=== PATIENT | male | born 1940 | race Caucasian/White ===

== ENCOUNTER 2019-02-01 19:05 | Inpatient (IN) | payer MEDICARE, OTHER ==
[2019-02-01] VITALS (9 sets, daily range): BP systolic 83–118; BP diastolic 55–65
[~2019-02-01] VITALS: Ht 172.7 cm; Wt 61.9 kg
[~2019-02-01 19:05] MED LIST: ETOMIDATE 20 MG/10 ML VIAL IV ONE; SUCCINYLCHOLINE CHLORIDE 200 MG/10 ML VIAL IV ONE
--- NOTE | 2019-02-01 19:15 | NUR ---
Dr. Ann at bedside for MSE.
--- NOTE | 2019-02-01 19:20 | NUR ---
Respiratory at bedside.
--- NOTE | 2019-02-01 19:24 | NUR ---
20mg of etomidate given via IV on left AC 20G
--- NOTE | 2019-02-01 19:25 | NUR ---
150 mg of succinylcholine given via IV on left AC 20G
--- NOTE | 2019-02-01 19:26 | NUR ---
PT intubated by Dr. Ann.
[2019-02-01] MEDS ORDERED: PROPOFOL 100 ML IV ONE (19:28)
[2019-02-01] MEDS ORDERED: IPRATROPIUM BROMIDE 0.5 MG/2.5 ML NEBU NEB ONE (19:30)
[2019-02-01] MEDS ORDERED: CEFTRIAXONE 1 G in IV DEXTROSE 5% 50 ML IV ONE (19:30)
[2019-02-01] MEDS ORDERED: ALBUTEROL SULFATE 2.5 MG/3 ML NEBU NEB ONE (19:30)
[2019-02-01] MEDS ORDERED: ETOMIDATE 20 MG/10 ML VIAL IV ONE (19:30)
[2019-02-01] MEDS ORDERED: IV NORMAL SALINE 1000 ML BAG IV ONE (19:30)
[2019-02-01] MEDS ORDERED: NOREPINEPHRINE BITARTRATE 8 MG in IV DEXTROSE 5% 500 ML IV ONE (19:30)
[2019-02-01] MEDS ORDERED: SUCCINYLCHOLINE CHLORIDE 200 MG/10 ML VIAL IV ONE (19:30)
[2019-02-01] MEDS ORDERED: PIPERACILLIN SODIUM/TAZOBACTAM 3.375 G in IV DEXTROSE 5% 50 ML IV ONE (19:30)
--- NOTE | 2019-02-01 19:35 | NUR ---
Called into room by ED and pt subsequently intubated by MD ASHLEY with a 7.5 ETT @ approx. 22cm at the lip. Pt placed on Henson on settings (per MD DION Ann) AC 14, VT 500, PEEP+5 and FIO2-100%. Resp neb rx adm'd per ED orders. ABG done approx. 20 min after. Pt is in no resp. distress and appears to be tolerating the ventilator settings well. Henson alarm parameters have been checked and are audible. Pt to be monitored throughout the duration of the shift. Addendum: 02/02/19 at 1846 by GOYO PRO RT Correction- ETT is 7.0 not 7.5
--- NOTE | 2019-02-01 19:37 | NUR ---
Flu swab completed and sent to lab per MD instruction
[2019-02-01] MEDS ORDERED: CEFTRIAXONE 1 G VIAL ONE (19:39)
[2019-02-01] MEDS ORDERED: PROPOFOL 100 ML ONE (19:45)
[2019-02-01] MEDS ORDERED: ATOR40TA PO (19:53)
[2019-02-01] MEDS ORDERED: ASCO500C18 PO (19:53)
[2019-02-01] MEDS ORDERED: CHOL10002 PO (19:53)
[2019-02-01] MEDS ORDERED: ACET325T53 PO (19:53)
[2019-02-01] MEDS ORDERED: CHLO473M5 MM (19:53)
[2019-02-01] MEDS ORDERED: BISA10SU61 RC (19:53)
[2019-02-01] MEDS ORDERED: MELA5TAB PO (19:53)
[2019-02-01] MEDS ORDERED: [UNRECOGNIZED DRUG - CODE] IV (19:53)
[2019-02-01] MEDS ORDERED: FOLIC ACID PO (19:53)
[2019-02-01] MEDS ORDERED: ASPI81TA31 PO (19:53)
[2019-02-01] MEDS ORDERED: CYAN250014 PO (19:53)
[2019-02-01] MEDS ORDERED: CRAN425C6 PO (19:53)
[2019-02-01] MEDS ORDERED: DOCU-141 PO (19:53)
[2019-02-01] MEDS ORDERED: METO25TA6 PO (19:53)
[2019-02-01] MEDS ORDERED: MULT-213 PO (19:53)
[2019-02-01] MEDS ORDERED: FERR325T24 PO (19:53)
[2019-02-01] MEDS ORDERED: ALBU2.5V38 IH (19:53)
[2019-02-01] MEDS ORDERED: PANT40SU2 PO (19:53)
[2019-02-01] MEDS ORDERED: CRAN3875 PO (19:53)
[2019-02-01] MEDS ORDERED: NA P133E RC (19:53)
[2019-02-01] MEDS ORDERED: IPRA3AMP23 IH (19:53)
[2019-02-01] MEDS ORDERED: ACET-73 PO (19:53)
[2019-02-01] MEDS ORDERED: ALBUTEROL SULFATE 2.5 MG/ 0.5 ML NEBU ONE (19:57)
[2019-02-01] MEDS ORDERED: IPRATROPIUM BROMIDE 0.5 MG/2.5 ML NEBU ONE (19:57)
--- NOTE | 2019-02-01 20:00 | NUR ---
Xray at bedside.
[2019-02-01 20:03] LABS: CARBON DIOXIDE 20 mmol/L (21-32); CREATININE 2.1 mg/dL (0.6-1.3); GLUCOSE 98 mg/dL (74-106); UREA NITROGEN, BLOOD 46 mg/dL (7-18)
[2019-02-01] MEDS ORDERED: PIPERACILLIN/TAZOBACTAM/D5W 50 ML IV ONE (20:04)
[2019-02-01 20:12] LABS: BASOPHILS % (AUTO) 0.3 % (0.0-2.0); EOSINOPHILS # (AUTO) 0.1 K/uL (0.0-0.7); EOSINOPHILS % (AUTO) 0.4 % (0.0-7.0); HEMATOCRIT 44.5 % (36.7-47.1); HEMOGLOBIN 13.6 g/dL (12.5-16.3); LYMPHOCYTES # (AUTO) 0.7 K/uL (20.0-40.0); LYMPHOCYTES % (AUTO) 4.3 % (20.5-51.5); MEAN CORPUSCULAR HGB CONC 30 g/dL (32.5-36.3); MEAN CORPUSCULAR VOLUME 98.5 fL (73.0-96.2); MONOCYTES % (AUTO) 6.1 % (0.0-11.0); NEUTROPHILS # (AUTO) 14.4 K/uL (1.8-8.9); NEUTROPHILS % (AUTO) 88.9 % (38.5-71.5); PLATELET COUNT (AUTO) 220 K/uL (152-348); RED BLOOD CELL COUNT(AUTO) 4.52 MIL/uL (4.06-5.63); WHITE BLOOD COUNT (AUTO) 16.2 K/uL (3.6-10.2)
[2019-02-01 20:13] LABS: CHLORIDE 128 mmol/L (98-107)
[2019-02-01 20:16] LABS: ALANINE AMINOTRANSFERASE 26 U/L (16-63); ALKALINE PHOSPHATASE 84 U/L (50-136); ASPARTATE AMINOTRANSFERASE 45 U/L (15-37); BILIRUBIN,DIRECT 0.5 mg/dL (0.0-0.2); BILIRUBIN,TOTAL 1.9 mg/dL (0.2-1.0); TOTAL PROTEIN, SERUM 8.9 g/dL (6.4-8.2)
--- NOTE | 2019-02-01 20:18 | NUR ---
Urine sample collected, sent to lab.
[2019-02-01 20:21] LABS: ABG BASE EXCESS -8.1 mmol/L; ABG HCO3 17.7 mmol/L; ABG PCO2 37.3 mmHg (35.0-45.0); ABG PH 7.294 (7.350-7.450); ABG PO2 255.6 mmHg (75.0-100.0); ABG SITE LEFT BRACHIAL; ABG TOTAL HEMOGLOBIN 12.8 G/dL (13.5-18.0); COHb 1.4 % (0.5-1.5); MetHb 0.2 % (0.0-1.5); O2Hb 98.3 % (94.0-97.0); VENT MODE VENT - A/C; VT, ABG 500 mL
[2019-02-01] MEDS ORDERED: ENOXAPARIN SODIUM 60 MG/0.6 ML DISP.SYRIN SQ ONE ×2 (20:30→20:31)
--- NOTE | 2019-02-01 20:31 | NUR ---
Dr. Ann speaking with Pedro Camarena.
[2019-02-01 20:32] LABS: *BILIRUBIN,URIN 1+ (NEGATIVE); *KETONES,URINE TRACE (NEGATIVE); *UROBILINOGEN,URINE 0.2 E.U./dl (NORMAL); LEUKOCYTE ESTERASE ,URINE NEGATIVE (NEGATIVE); NITRITE, URINE NEGATIVE (NEGATIVE); PH,URINE 5.5 (5.0-8.0); UGLUCOSE NEGATIVE (NEGATIVE)
--- NOTE | 2019-02-01 20:35 | NUR ---
Pt's son at bedside, refused lovenox, states pt cannot have lovenox due to risk for GI bleed. Addendum: 02/01/19 at [address] Ann made aware.
--- NOTE | 2019-02-01 20:38 | NUR ---
Crescencio Brown IN STORE MARKETER at bedside.
--- NOTE | 2019-02-01 20:40 | NUR ---
Pt accepted for admission to CCU by Crescencio Brown, diagnosis: respiratory failure.
[2019-02-01 20:47] LABS: *BLOOD, URINE TRACE (NEGATIVE)
[2019-02-01 20:48] LABS: *CLARITY,URINE SLIGHTLY HAZY (CLEAR); *COLOR,URINE DARK YELLOW (YELLOW)
[2019-02-01 20:49] LABS: MUCUS,URINE MODERATE /LPF (0-FEW); SQUAMOUS EPITHELIAL CELL,UR FEW /HPF (NONE SEEN); URINE AMORPHOUS URATE MODERATE /HPF; WBC,URINE 0-3 /HPF (0-3)
[2019-02-01 20:54] LABS: BAND % (MANUAL) 28 % (0-10); LYMPHOCYTES % (MANUAL) 7 % (20-40); MONOCYTES % (MANUAL) 6 % (2-10); NEUTROPHILS % (MANUAL) 59 % (42-75)
[2019-02-01] MEDS ORDERED: Z GUARD REMEDY PASTE 57 GM TUBE TOP PRN (21:15)
[2019-02-01] MEDS ORDERED: MORPHINE SULFATE 2 MG/1 ML DISP.SYRIN IV PRN (21:15)
[2019-02-01] MEDS ORDERED: ASPIRIN 300 MG RECTAL SUPP RC ONE (21:15)
--- NOTE | 2019-02-01 21:19 | NUR ---
Report given to Lo DOZIER CCU.
[2019-02-01] MEDS ORDERED: ACETAMINOPHEN 650 MG SUPP.RECT RC PRN (21:30)
[2019-02-01] MEDS: MEROPENEM 500 MG in IV NORMAL SALINE 50 ML IV SCH (21:30)
[2019-02-01] MEDS ORDERED: VANCOMYCIN IV 1 G in PREMIXED 0 EACH IV SCH (22:00)
--- NOTE | 2019-02-01 22:00 | NUR ---
bath patient and changed soiled linens and gown . photo taken on patient skin issues see photo and assessment . patient with generalized redness and skin rashes ,consulted wound care ordered z guard and special mattress .
--- NOTE | 2019-02-01 22:00 | NUR ---
received patient from ER s/p intubation for respiratory failure dx:sepsis and septic shock and acute hypoxia.intubated on ac of 14/500 100% and peep of 5. tolerating vent setting saturation 95 % sedated on propofol patient also on norepinephrine drip t keep sbp >90 mm/hg . admission history data collected from patient son .ISADORA Brown aware about patient and orders in the computer ,isadora Brown spoked with patients son about treatment and patient condition and isadora vu (id ) will see patient for antibiotic treatment .
[2019-02-01] MEDS: PROPOFOL 100 ML IV PRN (23:00)
--- NOTE | 2019-02-01 23:00 | NUR ---
patient son wants no CPR but OK for intubation and medications .
--- NOTE | 2019-02-01 23:03 | NUR ---
U/S OF THE RIGHT AND LEFT EXTREMITIES DONE BY PARLIAMENTARY ARCHIVIST AT BEDSIDE PER PARLIAMENTARY ARCHIVIST + FOR RIGHT LOWER EXTREMITIES DVT .INFORMED STAMPING DIE TRY OUT WORKER SANDY AND MADE AWARE , STAMPING DIE TRY OUT WORKER SPOKED TO PATIENT SON VIA PHONE .NO ORDERS MADE PATIENT SON REFUSED ANTICOAGULANTS .
[2019-02-01] MEDS ORDERED: VANCOMYCIN 1000 MG VIAL ONE (23:13)
[2019-02-01] MEDS ORDERED: MEROPENEM 500MG/NS 50ML PB ***ER PYXIS ONLY IV ONE (23:13)
--- NOTE | 2019-02-01 23:30 | NUR ---
informed patient son that patient needs a midline or a piccline he verbalized understanding and ok for midline or piccline . called nursing wire rope fabrication supervisor and made aware piccline RN COMING IN AM .
--- NOTE | 2019-02-01 23:30 | NUR ---
nell Brown made aware about low urinary output with order for urine Na and urine random .
[2019-02-02] VITALS (93 sets, daily range): BP systolic 65–128; BP diastolic 37–89
--- NOTE | 2019-02-02 | NUR ---
informed SORT MANAGER Kevin patient is a Jehovah witness and refused blood transfusion .placed note in patients chart .
[2019-02-02] MEDS ORDERED: Z GUARD REMEDY PASTE 57 GM TUBE TOP PRN (02:30)
[2019-02-02] MEDS ORDERED: NOREPINEPHRINE BITARTRATE 4 MG/4 ML VIAL IV ONE (04:20)
[2019-02-02] MEDS: NOREPINEPHRINE BITARTRATE 16 MG in IV DEXTROSE 5% 500 ML IV PRN ×2 (04:23→16:09)
[2019-02-02 05:14] LABS: BASOPHILS # (AUTO) 0.1 K/uL (0.0-8.0); BASOPHILS % (AUTO) 0.4 % (0.0-2.0); EOSINOPHILS # (AUTO) 0.1 K/uL (0.0-0.7); EOSINOPHILS % (AUTO) 0.5 % (0.0-7.0); HEMATOCRIT 37.1 % (36.7-47.1); HEMOGLOBIN 11.4 g/dL (12.5-16.3); LYMPHOCYTES # (AUTO) 0.9 K/uL (20.0-40.0); LYMPHOCYTES % (AUTO) 6.2 % (20.5-51.5); MEAN CORPUSCULAR HEMOGLOBIN 30.2 uug (23.8-33.4); MEAN CORPUSCULAR HGB CONC 31 g/dL (32.5-36.3); MEAN CORPUSCULAR VOLUME 97.9 fL (73.0-96.2); MONOCYTES # (AUTO) 0.8 K/uL (2.0-10.0); MONOCYTES % (AUTO) 5.1 % (0.0-11.0); NEUTROPHILS # (AUTO) 13.4 K/uL (1.8-8.9); NEUTROPHILS % (AUTO) 87.8 % (38.5-71.5); PLATELET COUNT (AUTO) 137 K/uL (152-348); RED BLOOD CELL COUNT(AUTO) 3.79 MIL/uL (4.06-5.63); WHITE BLOOD COUNT (AUTO) 15.3 K/uL (3.6-10.2)
[2019-02-02 05:33] LABS: CARBON DIOXIDE 21 mmol/L (21-32); CHOLESTEROL 102 mg/dL (<200); CREATININE 2.1 mg/dL (0.6-1.3); GLUCOSE 157 mg/dL (74-106); HDL CHOLESTEROL 20 mg/dL (40-60); MAGNESIUM 2.2 mg/dL (1.8-2.4); PHOSPHOROUS 3.3 mg/dL (2.5-4.9); POTASSIUM 3.9 mmol/L (3.5-5.1); TRIGLYCERIDES 125 MG/DL (30-150); UREA NITROGEN, BLOOD 49 mg/dL (7-18)
[2019-02-02 05:35] LABS: CHLORIDE 129 mmol/L (98-107)
[2019-02-02] MEDS ORDERED: IV D5W 1000ML 1,000 ML IV PRN (07:30)
--- NOTE | 2019-02-02 07:39 | NUR ---
Attending Tricia Prather in the unit to see and examine patient, see order hx.
--- NOTE | 2019-02-02 08:00 | NUR ---
Vascular services, Dr. Arredondo in the unit to see and examine patient, full report given and at this time himself called pt's son Mr. Gabo Orantes and discussed DVT potential treatment with him. later as stated by physician, pt. unstable for any invasive procedures at this time.
[2019-02-02] MEDS: ASPIRIN 325 MG TABLET GT SCH (08:38)
[2019-02-02] MEDS: Z GUARD REMEDY PASTE 57 GM TUBE TOP SCH ×2 (08:38→20:32)
[2019-02-02] MEDS: PANTOPRAZOLE SODIUM 40 MG VIAL IV SCH (08:38)
[2019-02-02] MEDS: MEROPENEM 500 MG in IV NORMAL SALINE 50 ML IV SCH ×2 (08:49→20:33)
--- NOTE | 2019-02-02 09:00 | NUR ---
Echo Cardiogram in progress.
--- NOTE | 2019-02-02 09:31 | NUR ---
Cardiology services, DR. Bender in the unit to see and examine pt. see order hx.
--- NOTE | 2019-02-02 09:40 | NUR ---
Respiratory serviced, Dr. Dickinson in the unit to see and examine patient, full report given orders received and implemented. See order hx. Rt at bedside.
[2019-02-02] MEDS ORDERED: FUROSEMIDE 40 MG/4 ML VIAL IV ONE (09:45)
[2019-02-02 09:53] LABS: ABG BASE EXCESS -9.3 mmol/L; ABG HCO3 16.7 mmol/L; ABG PCO2 36.5 mmHg (35.0-45.0); ABG PH 7.277 (7.350-7.450); ABG PO2 300.5 mmHg (75.0-100.0); ABG SITE RIGHT RADIAL; ABG TOTAL HEMOGLOBIN 11.6 G/dL (13.5-18.0); COHb 0.8 % (0.5-1.5); MetHb 0.4 % (0.0-1.5); O2Hb 98.4 % (94.0-97.0); VENT MODE VENT - A/C; VT, ABG 500 mL
--- NOTE | 2019-02-02 09:55 | NUR ---
RT Post ABG decreased FiO2 to 50% and increased VT to 550 per verbal order. RN aware
--- NOTE | 2019-02-02 10:04 | NUR ---
Nephrology services, Dr. Radha Farr in the unit to see and examine patient. See orders hx.
[2019-02-02] MEDS: PROPOFOL 100 ML IV PRN ×2 (10:55→20:33)
[2019-02-02] MEDS: IV 1/2NS 1000 ML 1,000 ML IV PRN (10:57)
--- NOTE | 2019-02-02 14:17 | NUR ---
Clinical pharmacy note-Vancomycin dosing per pharmacy Subjective: To start Vancomycin dosing on this patient for HCAP and septic shock Objective: BUN 49 Scr 2.1 WBC 15.3 Temp 99.2 Assessment/Plan: Patient had Vancomycin 1gram last night at 2200. Will start Vancomycin dosing by random level due to decreased renal function. Vancomycin random is on order today at 1500. Will follow the level for further dosing. Addendum: 02/02/19 at 1606 by CODY ESCOBAR VANCOMYCIN RANDOM TODAY AT 1500:22.3 NO DOSE WILL BE GIVEN TODAY AND ANOTHER RANDOM IS ON ORDER FOR TOMORROW AM FOR FURTHER DOSING
[2019-02-02 18:27] LABS: BASOPHILS # (AUTO) 0.1 K/uL (0.0-8.0); BASOPHILS % (AUTO) 0.6 % (0.0-2.0); EOSINOPHILS # (AUTO) 1.6 K/uL (0.0-0.7); EOSINOPHILS % (AUTO) 11.5 % (0.0-7.0); HEMATOCRIT 35.9 % (36.7-47.1); HEMOGLOBIN 11.1 g/dL (12.5-16.3); LYMPHOCYTES # (AUTO) 1.1 K/uL (20.0-40.0); LYMPHOCYTES % (AUTO) 7.8 % (20.5-51.5); MEAN CORPUSCULAR HGB CONC 31 g/dL (32.5-36.3); MEAN CORPUSCULAR VOLUME 97.4 fL (73.0-96.2); MONOCYTES # (AUTO) 0.8 K/uL (2.0-10.0); MONOCYTES % (AUTO) 5.6 % (0.0-11.0); NEUTROPHILS # (AUTO) 10.6 K/uL (1.8-8.9); NEUTROPHILS % (AUTO) 74.5 % (38.5-71.5); PLATELET COUNT (AUTO) 136 K/uL (152-348); RED BLOOD CELL COUNT(AUTO) 3.69 MIL/uL (4.06-5.63); WHITE BLOOD COUNT (AUTO) 14.2 K/uL (3.6-10.2)
--- NOTE | 2019-02-02 18:40 | NUR ---
BUBBA Bell in the unit to see and examine patient.
--- NOTE | 2019-02-02 19:30 | NUR ---
Report received. 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 Orally intubated and to mechanical ventilator with settings: AC=14, AH=970hf, FIO2=40%, PEEP=5; saturations 98-100%. Doesn't open eyes to name or painful stimuli. With facial grimacing to pain. Good cough effort noted during suctioning. On Levophed and Diprivan drips to MATTHEW PICC line; refer to IV spread sheet for dosages/rates. Assessment completed. Addendum: 02/02/19 at 2114 by MINH SHORE RN Amended: Links added.
[2019-02-02] MEDS: MUPIROCIN 2% OINT 22 GM TUBE NS SCH (20:31)
--- NOTE | 2019-02-02 20:45 | NUR ---
Sedation vacation: After 15 minutes, patient's RR up to 20/min, bucking the vent, still doesn't open eyes to name, but grimaces to pain. Diprivan drip resumed at 30 mcg/kg/min. Addendum: 02/02/19 at 210 by MINH SHORE RN Amended: Links added. Addendum: 02/02/19 at 2114 by MINH SHORE RN Amended: Links added.
[2019-02-03] VITALS (69 sets, daily range): BP systolic 83–109; BP diastolic 45–69
[2019-02-03] MEDS: IV 1/2NS 1000 ML 1,000 ML IV PRN (00:55)
[2019-02-03] MEDS: NOREPINEPHRINE BITARTRATE 16 MG in IV DEXTROSE 5% 500 ML IV PRN ×3 (00:55→21:17)
[2019-02-03] MEDS: PROPOFOL 100 ML IV PRN ×3 (04:01→21:13)
--- NOTE | 2019-02-03 04:30 | NUR ---
Levophed drip titrated down to 25 mcg/min. BPs monitored closely. Addendum: 02/03/19 at 0647 by MINH SHORE RN Amended: Links added.
[2019-02-03 05:18] LABS: BASOPHILS # (AUTO) 0.1 K/uL (0.0-8.0); BASOPHILS % (AUTO) 0.3 % (0.0-2.0); EOSINOPHILS # (AUTO) 2.3 K/uL (0.0-0.7); EOSINOPHILS % (AUTO) 15.4 % (0.0-7.0); HEMATOCRIT 36.3 % (36.7-47.1); HEMOGLOBIN 11.1 g/dL (12.5-16.3); LYMPHOCYTES # (AUTO) 1.1 K/uL (20.0-40.0); LYMPHOCYTES % (AUTO) 6.9 % (20.5-51.5); MEAN CORPUSCULAR HEMOGLOBIN 29.8 uug (23.8-33.4); MEAN CORPUSCULAR HGB CONC 31 g/dL (32.5-36.3); MEAN CORPUSCULAR VOLUME 97.1 fL (73.0-96.2); MONOCYTES # (AUTO) 0.7 K/uL (2.0-10.0); MONOCYTES % (AUTO) 4.8 % (0.0-11.0); NEUTROPHILS # (AUTO) 11.1 K/uL (1.8-8.9); NEUTROPHILS % (AUTO) 72.6 % (38.5-71.5); PLATELET COUNT (AUTO) 127 K/uL (152-348); RED BLOOD CELL COUNT(AUTO) 3.74 MIL/uL (4.06-5.63); WHITE BLOOD COUNT (AUTO) 15.3 K/uL (3.6-10.2)
[2019-02-03 05:23] LABS: CARBON DIOXIDE 21 mmol/L (21-32); CHLORIDE 121 mmol/L (98-107); GLUCOSE 159 mg/dL (74-106); POTASSIUM 3.1 mmol/L (3.5-5.1); UREA NITROGEN, BLOOD 48 mg/dL (7-18)
--- NOTE | 2019-02-03 06:46 | NUR ---
Saturations maintaining above 94% on current vent settings. Levophed drip remains at 25 mcg/min and Diprivan drip at 35 mcg/kg/min. No neuro changes. Addendum: 02/03/19 at 0646 by MINH SHORE RN Amended: Links added. Addendum: 02/03/19 at 0647 by MINH SHORE RN Amended: Links added.
[2019-02-03] MEDS: ASPIRIN 325 MG TABLET GT SCH (09:00)
[2019-02-03] MEDS: MEROPENEM 500 MG in IV NORMAL SALINE 50 ML IV SCH (09:00)
[2019-02-03] MEDS: MUPIROCIN 2% OINT 22 GM TUBE NS SCH ×2 (09:00→20:29)
[2019-02-03] MEDS: Z GUARD REMEDY PASTE 57 GM TUBE TOP SCH ×2 (09:00→20:30)
[2019-02-03 09:06] LABS: ABG BASE EXCESS -6.1 mmol/L; ABG HCO3 19.6 mmol/L; ABG PCO2 39.4 mmHg (35.0-45.0); ABG PH 7.314 (7.350-7.450); ABG PO2 97.7 mmHg (75.0-100.0); ABG SITE RIGHT RADIAL; ABG TOTAL HEMOGLOBIN 12.1 G/dL (13.5-18.0); COHb 1.5 % (0.5-1.5); MetHb 0.1 % (0.0-1.5); O2Hb 96.1 % (94.0-97.0); VENT MODE VENT - A/C 14; VT, ABG 550 mL
[2019-02-03] MEDS: PANTOPRAZOLE SODIUM 40 MG VIAL IV SCH (12:04)
[2019-02-03] MEDS: ONDANSETRON 4 MG/2 ML VIAL IV PRN (12:04)
[2019-02-03] MEDS: POTASSIUM CHLORIDE 50 ML IV SCH ×3 (12:07→13:45)
--- NOTE | 2019-02-03 14:32 | NUR ---
Clinical pharmacy note-Vancomycin dosing per pharmacy Subjective: To continue Vancomycin dosing on this patient for HCAP and septic shock Objective: BUN 48 Scr 2.0 WBC 15.3 Temp 97.9 Random today with am labs: 19.1 Assessment/Plan: Will continue dosing per level d/t reduced renal function. Per today's random, will dose a 1gm vanco tonight at 2100. Will check renal function in am and decide when to order next random level. Will follow
--- NOTE | 2019-02-03 16:39 | NUR ---
i CALLED AND NOTIFIED, Kary HASSAN. THAT PT. HAS A SPUTUM CULTURE FROM 01/31/2019 THAT WAS POSITIVE FOR C.R.E. SHE STATED, " I WILL TAKE CARE OF IT WHEN I COME LATER TODAY. "SON HERE VISITING WITH PT. AND ALSO AWARE OF THE CULTURE RESULTS.
--- NOTE | 2019-02-03 19:45 | NUR ---
Pt received on continuous mechanical ventilation via 7.0 ETT secured at 22cm lipl line. Pt on Henson vent with ordered settings of A/C-14, VT-550, PEEP+5, FIO2-30%. Pt tolerating vent settings well. Sxn'd small amounts of thick white/yellow secretions. No signs or symptoms of respiratory distress noted. ETT secured with AnchorFast device, good skin integrity noted to area of application. ETT moved periodically per hospital policy. HME changed. Oral care done. Proper isolation precuation equipment used. Bag/valve/mask at bedside. Vent alarm parameters checked, on and audible. Vent plugged into red emergency outlet. Will continue to monitor.
--- NOTE | 2019-02-03 19:50 | NUR ---
Report received. Seen by Adrienne MUIR; updated of patient's conditione. Remains on Levophed and Diprivan drips via PICC line MATTHEW. VS monitored closely. 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 New antibiotics ordered by Adrienne MUIR. Addendum: 02/03/19 at 2314 by MINH SHORE RN Amended: Links added.
[2019-02-03] MEDS ORDERED: DOSING PER PHARMACY-AMIKACIN IV XX PRN (20:00)
[2019-02-03] MEDS ORDERED: CLINDAMYCIN PHOSPHATE 600 MG/4 ML VIAL ONE ×2 (20:44→22:34)
[2019-02-03] MEDS ORDERED: VANCOMYCIN IV 1,000 MG in IV DEXTROSE 5% 250 ML IV ONE (21:00)
[2019-02-03] MEDS ORDERED: NORMAL SALINE IV SCH (21:45)
[2019-02-03] MEDS ORDERED: AMIKACIN IV SCH (21:45)
--- NOTE | 2019-02-03 22:20 | NUR ---
Sedation vacation: After 40 minutes patient's RR up to 20/min, moving R arm weakly, trying to scratch R side, still not opening eyes to name. Diprivan drip resumed at 30 mcg/kg/min. Addendum: 02/03/19 at 2308 by MINH SHORE RN Amended: Links added.
[2019-02-03] MEDS: CLINDAMYCIN PHOSPHATE IV 600 MG in IV DEXTROSE 5% 100 ML IV SCH (22:29)
[2019-02-03] MEDS ORDERED: AMIKACIN SULFATE 500 MG/2 ML VIAL ONE (22:33)
[2019-02-04] VITALS (95 sets, daily range): BP systolic 71–108; BP diastolic 39–69
[2019-02-04] MEDS: IV 1/2NS 1000 ML 1,000 ML IV PRN ×2 (03:58→11:01)
[2019-02-04 05:19] LABS: BASOPHILS % (AUTO) 0.1 % (0.0-2.0); EOSINOPHILS # (AUTO) 1.8 K/uL (0.0-0.7); EOSINOPHILS % (AUTO) 12.7 % (0.0-7.0); HEMATOCRIT 36.2 % (36.7-47.1); HEMOGLOBIN 11.4 g/dL (12.5-16.3); LYMPHOCYTES # (AUTO) 1.1 K/uL (20.0-40.0); LYMPHOCYTES % (AUTO) 7.8 % (20.5-51.5); MEAN CORPUSCULAR HEMOGLOBIN 30.2 uug (23.8-33.4); MEAN CORPUSCULAR HGB CONC 32 g/dL (32.5-36.3); MEAN CORPUSCULAR VOLUME 95.8 fL (73.0-96.2); MONOCYTES # (AUTO) 0.7 K/uL (2.0-10.0); MONOCYTES % (AUTO) 4.9 % (0.0-11.0); NEUTROPHILS # (AUTO) 10.8 K/uL (1.8-8.9); NEUTROPHILS % (AUTO) 74.5 % (38.5-71.5); PLATELET COUNT (AUTO) 113 K/uL (152-348); RED BLOOD CELL COUNT(AUTO) 3.78 MIL/uL (4.06-5.63); WHITE BLOOD COUNT (AUTO) 14.5 K/uL (3.6-10.2)
[2019-02-04 05:35] LABS: CARBON DIOXIDE 20 mmol/L (21-32); CHLORIDE 114 mmol/L (98-107); CREATININE 1.6 mg/dL (0.6-1.3); GLUCOSE 149 mg/dL (74-106); PHOSPHOROUS 2.9 mg/dL (2.5-4.9); POTASSIUM 3.7 mmol/L (3.5-5.1); UREA NITROGEN, BLOOD 37 mg/dL (7-18)
[2019-02-04] MEDS: CLINDAMYCIN PHOSPHATE IV 600 MG in IV DEXTROSE 5% 100 ML IV SCH ×3 (05:37→21:32)
[2019-02-04] MEDS: PROPOFOL 100 ML IV PRN ×2 (05:58→18:16)
--- NOTE | 2019-02-04 06:24 | NUR ---
Remains on Levophed and Diprivan drips at 25 mcg/min and 30 mcg/kg/min respectively via MATTHEW PICC line. Saturations on current vent settings above 94%. Contact isolation maintained. Addendum: 02/04/19 at 0624 by MINH SHORE RN Amended: Links added.
[2019-02-04] MEDS: NOREPINEPHRINE BITARTRATE 16 MG in IV DEXTROSE 5% 500 ML IV PRN ×3 (07:31→20:25)
--- NOTE | 2019-02-04 08:00 | NUR ---
Pulmonary services, Dr. Dominguez in the unit to see and examine patient, full report given orders received, see orders hx.
[2019-02-04] MEDS: MUPIROCIN 2% OINT 22 GM TUBE NS SCH ×2 (08:17→20:30)
[2019-02-04] MEDS: PANTOPRAZOLE SODIUM 40 MG VIAL IV SCH (08:17)
[2019-02-04] MEDS: ASPIRIN 325 MG TABLET GT SCH (08:17)
[2019-02-04] MEDS: Z GUARD REMEDY PASTE 57 GM TUBE TOP SCH ×2 (08:19→20:30)
--- NOTE | 2019-02-04 08:45 | NUR ---
Sedation vacation started at this time and lasted until 0900, patient awake, attempting reach ETT with RUE. RR in the 20's. Gag, and cough reflex present. SBP in the 90's.
[2019-02-04 08:54] LABS: ABG BASE EXCESS -8.6 mmol/L; ABG HCO3 15.9 mmol/L; ABG PCO2 30.2 mmHg (35.0-45.0); ABG PO2 146.7 mmHg (75.0-100.0); ABG SITE LEFT BRACHIAL; ABG TOTAL HEMOGLOBIN 12.2 G/dL (13.5-18.0); COHb 1.6 % (0.5-1.5); MetHb 0.1 % (0.0-1.5); O2Hb 97.7 % (94.0-97.0); VENT MODE VENT - A/C; VT, ABG 550 mL
--- NOTE | 2019-02-04 09:05 | NUR ---
Pt received on continuous mechanical ventilation via 7.0 ETT secured at 22cm lip line. Pt on Henson vent with ordered settings of A/C-14, VT-550, PEEP+5, FIO2-30%. Pt tolerating vent settings well. Sxn'd small amounts of thick secretions. No signs or symptoms of respiratory distress noted. ETT secured with AnchorFast device, good skin integrity noted to area of application. ETT moved periodically per hospital policy. HME changed. Oral care done. Proper isolation precuation equipment used. Bag/valve/mask at bedside. Vent alarm parameters checked, on and audible. Vent plugged into red emergency outlet. Will continue to monitor.
--- NOTE | 2019-02-04 10:00 | NUR ---
PUlmonary services, Dr. Dominguez in the unit and at this time informed of ABG results. No new orders received.
--- NOTE | 2019-02-04 10:35 | NUR ---
Cardiology services, Dr. Suárez in the unit to see and examine patient, full report given orders to decrease IVF to 50cc/hr and to titrate down levophed if sbp above 90, or a map of 60.
[2019-02-04] MEDS ORDERED: BISACODYL 10 MG SUPP.RECT RC PRN (12:15)
[2019-02-04] MEDS ORDERED: ALBUTEROL SULFATE 2.5 MG/3 ML NEBU IH PRN (12:15)
--- NOTE | 2019-02-04 13:45 | NUR ---
At this time pt's son and DPOA in the unit to visit his dad and as requested by him Attending Dr. Latrice Irvin called to speak about possible hospice vs comfort care measures as stated by pt'son. Addendum: 02/04/19 at 1403 by TIN DUFFY RN The above note intended for another patient.
--- NOTE | 2019-02-04 14:25 | NUR ---
Clinical pharmacy note-Amikacin dosing per pharmacy Subjective: To continue Amiakcin dosing on this patient for HCAP Objective: BUN 37 Scr 1.6 (decreasing) WBC 14.5 Temp 97.9 Amikacin random level: 14.7 (post amikacin 350 mg IV x1 on 02/03 at 2330) ht 172.7 cm wt 61.8 kg Assessment/Plan: Due to unstable srcr, will dose by random level today. Random level ~ 6 hrs post 1st dose is 14.7 mcg/ml. Will give Amikacin 350 mg IVPB x1 today at 1800. Pharmacy shall review the renal function in am & decide when to order next random for further dosing. Will follow
[2019-02-04] MEDS ORDERED: FERROUS SULFATE 325 MG TABEC PO SCH (17:00)
[2019-02-04] MEDS: CLOTRIMAZOLE 1% CREAM 30 GM TUBE TOP SCH (17:09)
[2019-02-04] MEDS: CHOLECALCIFEROL 1,000 UNIT TABLET GT SCH (17:13)
[2019-02-04] MEDS ORDERED: NORMAL SALINE IV ONE (18:00)
[2019-02-04] MEDS ORDERED: AMIKACIN IV ONE (18:00)
--- NOTE | 2019-02-04 18:00 | NUR ---
Attending N.P. called to be notified of knitter machine recommendations for TF. A call back from attending, N.P. Crescencio orders to start patient on feeding received.
[2019-02-04] MEDS: FERROUS SULFATE 300 MG/5 ML LIQUID UDC GT SCH (18:03)
--- NOTE | 2019-02-04 19:30 | NUR ---
Report received. 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 Orally intubated and to ventilator with same settings. Sat 96-100%. With both Diprivan and Levophed drips via MATTHEW PICC line. Please see IV spread sheet for rates/dosages. Assessment done. Addendum: 02/05/19 at 0700 by MINH SHORE RN Amended: Links added. Addendum: 02/05/19 at 0702 by MINH SHORE RN Amended: Links added.
[2019-02-04] MEDS: CHLORHEXIDINE GLUCONATE 15 ML MOUTHWASH MM SCH (20:30)
[2019-02-04] MEDS: ATORVASTATIN 40 MG TABLET GT SCH (20:30)
--- NOTE | 2019-02-04 21:30 | NUR ---
NGT feedings started at 20 ml/H. Addendum: 02/05/19 at 0702 by MINH SHORE RN Amended: Links added.
[2019-02-04] MEDS: OSMOLITE 1.2 CAL 1,000 ML LIQUID NG PRN (21:33)
[2019-02-05] VITALS (94 sets, daily range): BP systolic 74–114; BP diastolic 36–64
--- NOTE | 2019-02-05 03:00 | NUR ---
Tolerating NGT feedings; rate increased to 30 ml/H. Goal is 60 ml/H.
[2019-02-05 05:08] LABS: BASOPHILS % (AUTO) 0.3 % (0.0-2.0); EOSINOPHILS # (AUTO) 1.4 K/uL (0.0-0.7); EOSINOPHILS % (AUTO) 11.7 % (0.0-7.0); HEMATOCRIT 35.3 % (36.7-47.1); HEMOGLOBIN 11.2 g/dL (12.5-16.3); LYMPHOCYTES # (AUTO) 0.8 K/uL (20.0-40.0); LYMPHOCYTES % (AUTO) 7.2 % (20.5-51.5); MEAN CORPUSCULAR HGB CONC 32 g/dL (32.5-36.3); MEAN CORPUSCULAR VOLUME 94.6 fL (73.0-96.2); MONOCYTES # (AUTO) 0.7 K/uL (2.0-10.0); MONOCYTES % (AUTO) 5.8 % (0.0-11.0); NEUTROPHILS # (AUTO) 8.8 K/uL (1.8-8.9); PLATELET COUNT (AUTO) 123 K/uL (152-348); RED BLOOD CELL COUNT(AUTO) 3.73 MIL/uL (4.06-5.63); WHITE BLOOD COUNT (AUTO) 11.8 K/uL (3.6-10.2)
[2019-02-05 05:13] LABS: CARBON DIOXIDE 20 mmol/L (21-32); CHLORIDE 112 mmol/L (98-107); CREATININE 1.4 mg/dL (0.6-1.3); GLUCOSE 147 mg/dL (74-106); POTASSIUM 3.6 mmol/L (3.5-5.1); UREA NITROGEN, BLOOD 31 mg/dL (7-18)
[2019-02-05] MEDS: CLINDAMYCIN PHOSPHATE IV 600 MG in IV DEXTROSE 5% 100 ML IV SCH ×3 (05:38→21:05)
--- NOTE | 2019-02-05 06:00 | NUR ---
No neuro changes. Reaches for the ETT with R hand when turned and repositioned. Still doesn't open eyes to name or pain. Remains on Diprivan and Levophed drip at 20 mcg/kg/min and 18 mcg/min. respectively.
--- NOTE | 2019-02-05 07:15 | NUR ---
Levophed drip titrated up to 20 mcg/min; BP=76/48. Report given to Dennis DOZIER. Addendum: 02/05/19 at 0731 by MINH SHORE RN Amended: Links added.
[2019-02-05] MEDS: PROPOFOL 100 ML IV PRN ×2 (07:24→22:49)
--- NOTE | 2019-02-05 08:25 | NUR ---
WOUND CARE CONSULT (LATE ENTRY): PT SEEN ON 02/04/19 FOR SKIN ASSESSMENT AND NOTED TO HAVE GENERALIZED SKIN DISCOLORATION ALL OVER BODY, UNKNOWN ETIOLOGY, PRESENT ON ADMISSION. DEFER TO MD FOR SKIN CONDITION. PT ALSO NOTED TO HAVE RASH TO GROIN, PERINEUM, SACRAL/BUTTOCKS AREA, PRESENT ON ADMISSION. RECOMMENDATIONS MADE FOR THIS RASH (LOTRIMIN). DISCUSSED WITH NURSING STAFF. PT ON FIRST STEP [facility] AIRLOSS MATTRESS. ALL SKIN PROTECTION MEASURES IN PLACE. WILL SEE PRN. MD IN AGREEMENT WITH PLAN OF CARE. Addendum: 02/05/19 at 0828 by DENZEL THOMPSON RN Amended: Links added.
[2019-02-05] MEDS ORDERED: MULTIVITAMINS 5 ML LIQUID UDC GT SCH (09:00)
[2019-02-05] MEDS: CLOTRIMAZOLE 1% CREAM 30 GM TUBE TOP SCH ×2 (09:00→17:13)
[2019-02-05] MEDS: Z GUARD REMEDY PASTE 57 GM TUBE TOP SCH ×2 (09:00→21:02)
[2019-02-05] MEDS: PANTOPRAZOLE SODIUM 40 MG VIAL IV SCH (09:00)
[2019-02-05] MEDS: MUPIROCIN 2% OINT 22 GM TUBE NS SCH ×2 (09:00→21:04)
[2019-02-05] MEDS ORDERED: DOCUSATE SODIUM 100 MG CAPSULE PO SCH (09:00)
[2019-02-05] MEDS: CHLORHEXIDINE GLUCONATE 15 ML MOUTHWASH MM SCH ×2 (09:00→21:01)
[2019-02-05 09:32] LABS: ABG BASE EXCESS -7.7 mmol/L; ABG HCO3 17.7 mmol/L; ABG PCO2 35.4 mmHg (35.0-45.0); ABG PH 7.316 (7.350-7.450); ABG SITE RIGHT RADIAL; ABG TOTAL HEMOGLOBIN 11.7 G/dL (13.5-18.0); COHb 1.3 % (0.5-1.5); MetHb 0.2 % (0.0-1.5); O2Hb 95.9 % (94.0-97.0); VENT MODE VENT - A/C; VT, ABG 550 mL
[2019-02-05] MEDS: FERROUS SULFATE 300 MG/5 ML LIQUID UDC GT SCH ×2 (10:46→20:05)
[2019-02-05] MEDS: DOCUSATE SODIUM 100 MG/10 ML LIQUID UDC GT SCH (10:46)
[2019-02-05] MEDS: ONDANSETRON 4 MG/2 ML VIAL IV PRN (10:46)
[2019-02-05] MEDS: ASCORBIC ACID 500 MG TABLET GT SCH (10:47)
[2019-02-05] MEDS: ASPIRIN 325 MG TABLET GT SCH (10:47)
[2019-02-05] MEDS: MULTIVITAMINS,THERAPEUTIC TABLET GT SCH (10:47)
[2019-02-05] MEDS: FOLIC ACID 1 MG TABLET GT SCH (10:47)
[2019-02-05] MEDS: CHOLECALCIFEROL 1,000 UNIT TABLET GT SCH ×2 (10:57→17:14)
[2019-02-05] MEDS: CYANOCOBALAMIN 1,000 MCG TABLET GT SCH (10:57)
[2019-02-05] MEDS: NOREPINEPHRINE BITARTRATE 16 MG in IV DEXTROSE 5% 500 ML IV PRN (11:20)
[2019-02-05] MEDS: IV 1/2NS 1000 ML 1,000 ML IV PRN (11:31)
--- NOTE | 2019-02-05 13:29 | NUR ---
Clinical pharmacy note-Amikacin dosing per pharmacy Subjective: To continue Amiakcin dosing on this patient for HCAP Objective: BUN 31 Scr 1.4 (decreasing) WBC 11.8 Temp 98.2 Amikacin random level: 14.7 (post amikacin 350 mg IV x1 on 02/03 at 2330) Amikacin random level on 02/05 at 0817: 13.5(post amikacin 350mg iv x1 on 02/04 at 1800) ht 172.7 cm wt 61.8 kg Assessment/Plan: Due to unstable srcr, will dose by random level today. Will give Amikacin 350mg iv x1 today (ordered for tonight at 1800) and draw random tomorrow am for further dosing. If renal function is stable, will consider scheduled dosing.
[2019-02-05] MEDS ORDERED: AMIKACIN 350 MG in IV DEXTROSE 5% 100 ML IV ONE (18:00)
--- NOTE | 2019-02-05 20:20 | NUR ---
Short run V-tach; EKG done. Noted episode documented; days prior.
[2019-02-05] MEDS: ATORVASTATIN 40 MG TABLET GT SCH (21:01)
[2019-02-06] VITALS (95 sets, daily range): BP systolic 75–113; BP diastolic 29–65
[2019-02-06 04:56] LABS: BASOPHILS % (AUTO) 0.2 % (0.0-2.0); EOSINOPHILS % (AUTO) 8.7 % (0.0-7.0); HEMATOCRIT 32.9 % (36.7-47.1); HEMOGLOBIN 10.7 g/dL (12.5-16.3); LYMPHOCYTES # (AUTO) 0.8 K/uL (20.0-40.0); LYMPHOCYTES % (AUTO) 7.6 % (20.5-51.5); MEAN CORPUSCULAR HEMOGLOBIN 30.7 uug (23.8-33.4); MEAN CORPUSCULAR HGB CONC 33 g/dL (32.5-36.3); MEAN CORPUSCULAR VOLUME 94.4 fL (73.0-96.2); MONOCYTES # (AUTO) 0.7 K/uL (2.0-10.0); MONOCYTES % (AUTO) 6.1 % (0.0-11.0); NEUTROPHILS # (AUTO) 8.5 K/uL (1.8-8.9); NEUTROPHILS % (AUTO) 77.4 % (38.5-71.5); PLATELET COUNT (AUTO) 135 K/uL (152-348); RED BLOOD CELL COUNT(AUTO) 3.49 MIL/uL (4.06-5.63)
[2019-02-06 05:13] LABS: CREATININE 1.2 mg/dL (0.6-1.3); MAGNESIUM 1.9 mg/dL (1.8-2.4); PHOSPHOROUS 2.9 mg/dL (2.5-4.9); POTASSIUM 3.8 mmol/L (3.5-5.1)
[2019-02-06] MEDS: CLINDAMYCIN PHOSPHATE IV 600 MG in IV DEXTROSE 5% 100 ML IV SCH ×3 (05:45→21:18)
[2019-02-06] MEDS: DOCUSATE SODIUM 100 MG/10 ML LIQUID UDC GT SCH (07:44)
[2019-02-06] MEDS: PANTOPRAZOLE SODIUM 40 MG VIAL IV SCH (07:44)
[2019-02-06] MEDS: ASPIRIN 325 MG TABLET GT SCH (07:45)
[2019-02-06] MEDS: MULTIVITAMINS,THERAPEUTIC TABLET GT SCH (07:45)
[2019-02-06] MEDS: FOLIC ACID 1 MG TABLET GT SCH (07:46)
[2019-02-06] MEDS: FERROUS SULFATE 300 MG/5 ML LIQUID UDC GT SCH ×2 (07:46→20:15)
[2019-02-06] MEDS: ASCORBIC ACID 500 MG TABLET GT SCH (07:46)
[2019-02-06] MEDS: ONDANSETRON 4 MG/2 ML VIAL IV PRN ×2 (07:47→09:28)
[2019-02-06 08:07] LABS: ABG HCO3 15.6 mmol/L; ABG PCO2 30.2 mmHg (35.0-45.0); ABG PH 7.332 (7.350-7.450); ABG SITE RIGHT RADIAL; ABG TOTAL HEMOGLOBIN 11.8 G/dL (13.5-18.0); COHb 1.8 % (0.5-1.5); O2Hb 93.7 % (94.0-97.0); VENT MODE VENT - A/C; VT, ABG 550 mL
[2019-02-06] MEDS: CHOLECALCIFEROL 1,000 UNIT TABLET GT SCH ×2 (09:00→15:55)
--- NOTE | 2019-02-06 09:00 | NUR ---
DR. TOPETE here to examine pt.
[2019-02-06] MEDS: CHLORHEXIDINE GLUCONATE 15 ML MOUTHWASH MM SCH ×2 (09:29→20:42)
[2019-02-06] MEDS: CLOTRIMAZOLE 1% CREAM 30 GM TUBE TOP SCH ×2 (09:29→17:01)
[2019-02-06] MEDS: Z GUARD REMEDY PASTE 57 GM TUBE TOP SCH ×2 (09:29→20:43)
[2019-02-06] MEDS: MUPIROCIN 2% OINT 22 GM TUBE NS SCH ×2 (09:29→20:43)
[2019-02-06] MEDS: CYANOCOBALAMIN 1,000 MCG TABLET GT SCH (09:38)
[2019-02-06] MEDS: NOREPINEPHRINE BITARTRATE 16 MG in IV DEXTROSE 5% 500 ML IV PRN (13:18)
--- NOTE | 2019-02-06 13:35 | NUR ---
Clinical pharmacy note-Amikacin dosing per pharmacy Subjective: To continue Amikacin dosing on this patient for HCAP Objective: BUN 27 Scr 1.2 (decreasing) WBC 11 Temp 98 Amikacin random level: 14.7 (post amikacin 350 mg IV x1 on 02/03 at 2330) Amikacin random level on 02/05 at 0817: 13.5(post amikacin 350mg iv x1 on 02/04 at 1800) Amikacin random level on 02/07 at 06: 11.7 (post amikacin 350mg iv x1 on 02/05 at 1800) ht 172.7 cm wt 61.8 kg Assessment/Plan: Due to unstable srcr, will dose by random level today. Will give Amikacin 350mg iv x1 today (ordered for tonight at 1800) and draw random tomorrow am for further dosing. If renal function is stable, will consider scheduled dosing.
[2019-02-06] MEDS: PROPOFOL 100 ML IV PRN (15:56)
[2019-02-06] MEDS ORDERED: AMIKACIN 350 MG in IV DEXTROSE 5% 100 ML IV ONE (18:00)
--- NOTE | 2019-02-06 18:57 | NUR ---
SONYA here earlier to examine pt.
--- NOTE | 2019-02-06 18:58 | NUR ---
needed to increase propofol drip to 20 / mcg / kg / minute due to tachypnea ,earlier.
[2019-02-06] MEDS: ATORVASTATIN 40 MG TABLET GT SCH (20:42)
[2019-02-06] MEDS: IV NORMAL SALINE 250 ML IV PRN (21:18)
[2019-02-07] VITALS (91 sets, daily range): BP systolic 68–142; BP diastolic 27–103
[2019-02-07] MEDS: NOREPINEPHRINE BITARTRATE 16 MG in IV DEXTROSE 5% 500 ML IV PRN ×2 (01:58→13:19)
[2019-02-07] MEDS: PROPOFOL 100 ML IV PRN ×3 (03:39→23:50)
[2019-02-07 05:18] LABS: BASOPHILS % (AUTO) 0.3 % (0.0-2.0); EOSINOPHILS # (AUTO) 0.5 K/uL (0.0-0.7); EOSINOPHILS % (AUTO) 3.1 % (0.0-7.0); HEMATOCRIT 33.3 % (36.7-47.1); HEMOGLOBIN 10.6 g/dL (12.5-16.3); LYMPHOCYTES # (AUTO) 0.9 K/uL (20.0-40.0); LYMPHOCYTES % (AUTO) 5.4 % (20.5-51.5); MEAN CORPUSCULAR HEMOGLOBIN 30.3 uug (23.8-33.4); MEAN CORPUSCULAR HGB CONC 32 g/dL (32.5-36.3); MEAN CORPUSCULAR VOLUME 94.9 fL (73.0-96.2); MONOCYTES # (AUTO) 0.9 K/uL (2.0-10.0); MONOCYTES % (AUTO) 5.3 % (0.0-11.0); NEUTROPHILS # (AUTO) 13.9 K/uL (1.8-8.9); NEUTROPHILS % (AUTO) 85.9 % (38.5-71.5); PLATELET COUNT (AUTO) 168 K/uL (152-348); RED BLOOD CELL COUNT(AUTO) 3.51 MIL/uL (4.06-5.63); WHITE BLOOD COUNT (AUTO) 16.1 K/uL (3.6-10.2)
[2019-02-07 05:22] LABS: CREATININE 1.2 mg/dL (0.6-1.3); MAGNESIUM 1.8 mg/dL (1.8-2.4); POTASSIUM 4.1 mmol/L (3.5-5.1)
[2019-02-07] MEDS: CLINDAMYCIN PHOSPHATE IV 600 MG in IV DEXTROSE 5% 100 ML IV SCH ×3 (06:00→22:21)
--- NOTE | 2019-02-07 08:00 | NUR ---
Pulmonary services, Dr. Dominguez in the unit to see and examine patient, full report given; see order hx.
[2019-02-07] MEDS: ASPIRIN 325 MG TABLET GT SCH (08:38)
[2019-02-07] MEDS: ASCORBIC ACID 500 MG TABLET GT SCH (08:38)
[2019-02-07] MEDS: CHLORHEXIDINE GLUCONATE 15 ML MOUTHWASH MM SCH ×2 (08:38→21:22)
[2019-02-07] MEDS: PANTOPRAZOLE SODIUM 40 MG VIAL IV SCH (08:38)
[2019-02-07] MEDS: FOLIC ACID 1 MG TABLET GT SCH (08:38)
[2019-02-07] MEDS: MULTIVITAMINS,THERAPEUTIC TABLET GT SCH (08:40)
[2019-02-07] MEDS: CYANOCOBALAMIN 1,000 MCG TABLET GT SCH (08:41)
[2019-02-07] MEDS: CHOLECALCIFEROL 1,000 UNIT TABLET GT SCH ×2 (08:41→16:35)
[2019-02-07] MEDS: CLOTRIMAZOLE 1% CREAM 30 GM TUBE TOP SCH ×2 (08:41→16:37)
[2019-02-07] MEDS: Z GUARD REMEDY PASTE 57 GM TUBE TOP SCH ×2 (08:42→21:36)
[2019-02-07] MEDS: MUPIROCIN 2% OINT 22 GM TUBE NS SCH ×2 (08:42→21:24)
[2019-02-07] MEDS: DOCUSATE SODIUM 100 MG/10 ML LIQUID UDC GT SCH (08:45)
[2019-02-07 09:30] LABS: ABG BASE EXCESS -7.1 mmol/L; ABG HCO3 17.3 mmol/L; ABG PCO2 31.4 mmHg (35.0-45.0); ABG PH 7.359 (7.350-7.450); ABG PO2 72.5 mmHg (75.0-100.0); ABG SITE RIGHT RADIAL; ABG TOTAL HEMOGLOBIN 11.4 G/dL (13.5-18.0); COHb 1.8 % (0.5-1.5); MetHb 0.2 % (0.0-1.5); O2Hb 92.9 % (94.0-97.0); VENT MODE VENT - A/C; VT, ABG 550 mL
[2019-02-07] MEDS: OSMOLITE 1.2 CAL 1,000 ML LIQUID NG PRN (10:35)
[2019-02-07] MEDS: FERROUS SULFATE 300 MG/5 ML LIQUID UDC GT SCH ×2 (10:36→18:07)
--- NOTE | 2019-02-07 10:55 | NUR ---
Clinical pharmacy note-Amikacin dosing per pharmacy Subjective: To continue Amikacin dosing on this patient for HCAP Objective: BUN 33 Scr 1.2 WBC 16.1 Temp 98.6 Amikacin random level: 14.7 (post amikacin 350 mg IV x1 on 02/03 at 2330) Amikacin random level on 02/05 at 0817: 13.5(post amikacin 350mg iv x1 on 02/04 at 1800) Amikacin random level on 02/07 at 06: 11.7 (post amikacin 350mg iv x1 on 02/05 at 1800) ht 172.7 cm wt 61.8 kg Assessment/Plan: Since srcr decreased & past 2 days is table, will start once daily dosing as 15 mg/kg = 900 mgIV x1 today at 1800. Will check amikacin random level tomorrow with am labs (~ 12 hrs post). on 02/08, pharmacy shall use nomogram to determine freq. Will follow
--- NOTE | 2019-02-07 13:30 | NUR ---
Attending Tricia Jauregui in the unit to see and examine patient, full report given. At this time attending spoke with pt's son Mr. Gabo Orantes over the phone and discussed care plan.
--- NOTE | 2019-02-07 14:00 | NUR ---
Nephrology services, Dr. Silver in the unit to see and examine patient. No new orders received.
[2019-02-07] MEDS: MIDODRINE HCL 2.5 MG TABLET PO SCH (16:08)
[2019-02-07] MEDS ORDERED: AMIKACIN IV ONE (18:00)
[2019-02-07] MEDS ORDERED: DEXTROSE 5% IV ONE (18:00)
--- NOTE | 2019-02-07 19:30 | NUR ---
VISITED AND SEEN BY INSURANCE COMMISSIONER:DILLON TREVINO WITH ORDERS FOR B/C AND URINE C/S AND INSURANCE COMMISSIONER CALLED PATIENTS SON SPOKED WITH REGARDS TO PATIENTS PLAN OF CARE AND TREATMENT .
[2019-02-07] MEDS: ATORVASTATIN 40 MG TABLET GT SCH (21:22)
[2019-02-07] MEDS: MEROPENEM 500 MG in IV NORMAL SALINE 50 ML IV SCH (21:22)
[2019-02-07] MEDS: FUROSEMIDE 20 MG/2 ML VIAL IV SCH (21:22)
--- NOTE | 2019-02-07 21:30 | NUR ---
CALLED ALBUMIN LEVEL 1.3 L TO [facility] NO NEW ORDERS RECEIVED.
--- NOTE | 2019-02-07 22:00 | NUR ---
TURNED AND REPOSITION PATIENT OFFLOADED BACK WITH PILLOW UPPER AND LOWER EXTREMITIES ELEVATED WITH PILLOW ,DUE MEDICATION SCAN AND GIVEN , HOB UP ASPIRATION PRECAUTION OBSERVED AND CONTINUE TO MONITOR V/S BP AND TO KEEP SBP >90 MM /HG . KEEP PROPOFOL DRIP FOR SEDATION RR IS 20 ,ETT TO VENT . NO S/S/ OF PAIN .
[2019-02-07] MEDS: IV NORMAL SALINE 250 ML IV PRN (23:54)
[2019-02-08] VITALS (80 sets, daily range): BP systolic 80–130; BP diastolic 33–60
[2019-02-08] MEDS: NOREPINEPHRINE BITARTRATE 16 MG in IV DEXTROSE 5% 500 ML IV PRN ×2 (00:05→18:07)
[2019-02-08 05:24] LABS: BASOPHILS % (AUTO) 0.2 % (0.0-2.0); EOSINOPHILS # (AUTO) 0.9 K/uL (0.0-0.7); EOSINOPHILS % (AUTO) 6.8 % (0.0-7.0); HEMATOCRIT 31.7 % (36.7-47.1); HEMOGLOBIN 10.1 g/dL (12.5-16.3); LYMPHOCYTES # (AUTO) 0.5 K/uL (20.0-40.0); LYMPHOCYTES % (AUTO) 3.5 % (20.5-51.5); MEAN CORPUSCULAR HEMOGLOBIN 30.4 uug (23.8-33.4); MEAN CORPUSCULAR HGB CONC 32 g/dL (32.5-36.3); MONOCYTES % (AUTO) 7.5 % (0.0-11.0); NEUTROPHILS # (AUTO) 11.4 K/uL (1.8-8.9); PLATELET COUNT (AUTO) 166 K/uL (152-348); RED BLOOD CELL COUNT(AUTO) 3.33 MIL/uL (4.06-5.63); WHITE BLOOD COUNT (AUTO) 13.9 K/uL (3.6-10.2)
[2019-02-08 05:46] LABS: CREATININE 1.1 mg/dL (0.6-1.3); MAGNESIUM 1.7 mg/dL (1.8-2.4); PHOSPHOROUS 3.5 mg/dL (2.5-4.9)
[2019-02-08] MEDS: CLINDAMYCIN PHOSPHATE IV 600 MG in IV DEXTROSE 5% 100 ML IV SCH ×3 (05:47→22:18)
--- NOTE | 2019-02-08 07:30 | NUR ---
Recieved lying in bed, sedated on Propofol drip at 30 mcg/kg/min. via the PICC line MATTHEW. HR SR with occassional PVC's. Pt on Levophed drp for low BP running at 14mcg/min. Pt is ventilated, ETT intact and conected to vent AC 14, VT550, FIO2-30%, PEEP-5. Pt is tachypneic most of the time, lung is diminished.
[2019-02-08 07:44] LABS: ABG BASE EXCESS -4.2 mmol/L; ABG HCO3 21.1 mmol/L; ABG PCO2 39.5 mmHg (35.0-45.0); ABG PH 7.345 (7.350-7.450); ABG PO2 98.4 mmHg (75.0-100.0); ABG SITE RIGHT RADIAL; VENT MODE VENT - A/C; VT, ABG 550 mL
[2019-02-08] MEDS: PROPOFOL 100 ML IV PRN ×2 (09:13→19:35)
[2019-02-08] MEDS: FUROSEMIDE 20 MG/2 ML VIAL IV SCH ×2 (09:38→22:17)
[2019-02-08] MEDS: ASPIRIN 325 MG TABLET GT SCH (09:39)
[2019-02-08] MEDS: ASCORBIC ACID 500 MG TABLET GT SCH (09:39)
[2019-02-08] MEDS: DOCUSATE SODIUM 100 MG/10 ML LIQUID UDC GT SCH (09:39)
[2019-02-08] MEDS: FOLIC ACID 1 MG TABLET GT SCH (09:39)
[2019-02-08] MEDS: MEROPENEM 500 MG in IV NORMAL SALINE 50 ML IV SCH ×2 (09:39→22:18)
[2019-02-08] MEDS: CHLORHEXIDINE GLUCONATE 15 ML MOUTHWASH MM SCH ×2 (09:39→22:18)
[2019-02-08] MEDS: MULTIVITAMINS,THERAPEUTIC TABLET GT SCH (09:39)
[2019-02-08] MEDS: CYANOCOBALAMIN 1,000 MCG TABLET GT SCH (09:40)
[2019-02-08] MEDS: CHOLECALCIFEROL 1,000 UNIT TABLET GT SCH ×2 (09:40→17:37)
[2019-02-08] MEDS: MIDODRINE HCL 2.5 MG TABLET PO SCH ×3 (09:41→17:37)
[2019-02-08] MEDS: Z GUARD REMEDY PASTE 57 GM TUBE TOP SCH ×2 (09:42→22:18)
[2019-02-08] MEDS: MUPIROCIN 2% OINT 22 GM TUBE NS SCH ×2 (09:43→22:19)
[2019-02-08] MEDS: PANTOPRAZOLE SODIUM 40 MG VIAL IV SCH (09:50)
[2019-02-08] MEDS: CLOTRIMAZOLE 1% CREAM 30 GM TUBE TOP SCH ×2 (09:52→17:40)
[2019-02-08] MEDS: OSMOLITE 1.2 CAL 1,000 ML LIQUID NG PRN (10:00)
[2019-02-08] MEDS: FERROUS SULFATE 300 MG/5 ML LIQUID UDC GT SCH ×2 (12:10→17:38)
[2019-02-08] MEDS: ALBUMIN HUMAN 25% 25 GM in PREMIXED 1 EACH IV SCH ×4 (12:12→17:35)
[2019-02-08] MEDS: MAGNESIUM SULFATE/D5W 100 ML IV SCH ×2 (14:42→16:35)
--- NOTE | 2019-02-08 15:17 | NUR ---
Clinical pharmacy note-Amikacin dosing per pharmacy Subjective: To continue Amikacin dosing on this patient for HCAP Objective: ht 172.7 cm wt 61.8 kg BUN 33 Scr 1.1 WBC 13.9 Temp 98.3 Amikacin random level: 14.7 (post amikacin 350 mg IV x1 on 02/03 at 2330) Amikacin random level on 02/05 at 0817: 13.5(post amikacin 350mg iv x1 on 02/04 at 1800) Amikacin random level on 02/07 at 06: 11.7 (post amikacin 350mg iv x1 on 02/05 at 1800) Amikacin random level 11hrs post 15mg/kg dose (for extended dosing) on 02/08 @0442: 23.4 Assessment/Plan: Per nomogram dosing, amikacin level too high for extended once a day dosing. No dose for today, next random will be due tomorrow with am labs. Will check level when available and re-dose when appropriate or change to traditional dosing if renal function remains stable. Will follow
--- NOTE | 2019-02-08 18:00 | NUR ---
No apparent distress noted. Total Albumin 100mg IVPB given as ordered. Magnesiun Sulfate 2gms replaced as ordered.
--- NOTE | 2019-02-08 19:30 | NUR ---
rounds made patient in bed no s/s of pain ,patient does not follow commands .upper and lower extremities flaccid . tolerating vent setting saturation 100% on propofol for sedation rr 28 to 30 .suction via the ett and oral .Levophed drip to keep sbp >90 mm/hg . v/s done q15 and continue to monitor levophed drip and follow protocol .
[2019-02-08] MEDS: ATORVASTATIN 40 MG TABLET GT SCH (22:17)
[2019-02-09] VITALS (91 sets, daily range): BP systolic 81–108; BP diastolic 41–67
--- NOTE | 2019-02-09 | NUR ---
in bed resting ,ett in placed saturation 100% rr 28 ,suction via ett and via mouth . turned and reposition patient and hob up .tolerating tube feeding Osmolite 1.2 in progress at 60 ml/hr via the right nares.very minimal residual .abdomen soft . f/c to bsd .
[2019-02-09] MEDS: PROPOFOL 100 ML IV PRN ×3 (03:39→17:38)
--- NOTE | 2019-02-09 04:30 | NUR ---
am care done ,had a small bm ,brownish in color ,changed soiled linens and gown . Mepilex applied to sacral with hydrogel and z guard . turned and reposition patient .oral care done suction via ett and via mouth . elevated upper and lower extremities with pillows . hob up aspiration precaution observed.f/c done and heel elevated .
[2019-02-09 05:22] LABS: BASOPHILS % (AUTO) 0.4 % (0.0-2.0); EOSINOPHILS # (AUTO) 1.2 K/uL (0.0-0.7); EOSINOPHILS % (AUTO) 13.4 % (0.0-7.0); HEMATOCRIT 27.7 % (36.7-47.1); LYMPHOCYTES # (AUTO) 0.8 K/uL (20.0-40.0); MEAN CORPUSCULAR HEMOGLOBIN 30.9 uug (23.8-33.4); MEAN CORPUSCULAR HGB CONC 33 g/dL (32.5-36.3); MEAN CORPUSCULAR VOLUME 95.2 fL (73.0-96.2); MONOCYTES # (AUTO) 0.8 K/uL (2.0-10.0); MONOCYTES % (AUTO) 8.3 % (0.0-11.0); NEUTROPHILS # (AUTO) 6.4 K/uL (1.8-8.9); NEUTROPHILS % (AUTO) 68.9 % (38.5-71.5); PLATELET COUNT (AUTO) 168 K/uL (152-348); RED BLOOD CELL COUNT(AUTO) 2.91 MIL/uL (4.06-5.63); WHITE BLOOD COUNT (AUTO) 9.2 K/uL (3.6-10.2)
[2019-02-09] MEDS: CLINDAMYCIN PHOSPHATE IV 600 MG in IV DEXTROSE 5% 100 ML IV SCH ×3 (05:32→21:01)
[2019-02-09 05:34] LABS: ALANINE AMINOTRANSFERASE 19 U/L (16-63); ALKALINE PHOSPHATASE 88 U/L (50-136); ASPARTATE AMINOTRANSFERASE 23 U/L (15-37); BILIRUBIN,TOTAL 0.7 mg/dL (0.2-1.0); CARBON DIOXIDE 25 mmol/L (21-32); CHLORIDE 102 mmol/L (98-107); CREATININE 1.4 mg/dL (0.6-1.3); GLUCOSE 157 mg/dL (74-106); MAGNESIUM 2.6 mg/dL (1.8-2.4); PHOSPHOROUS 4.6 mg/dL (2.5-4.9); TOTAL PROTEIN, SERUM 6.4 g/dL (6.4-8.2); UREA NITROGEN, BLOOD 38 mg/dL (7-18)
[2019-02-09] MEDS: IV NORMAL SALINE 250 ML IV PRN (06:48)
[2019-02-09 07:34] LABS: ABG BASE EXCESS -7.1 mmol/L; ABG HCO3 18.5 mmol/L; ABG PCO2 37.2 mmHg (35.0-45.0); ABG PH 7.314 (7.350-7.450); ABG PO2 98.3 mmHg (75.0-100.0); ABG SITE LEFT RADIAL; ABG TOTAL HEMOGLOBIN 10.1 G/dL (13.5-18.0); COHb 1.2 % (0.5-1.5); MetHb 0.2 % (0.0-1.5); O2Hb 96.1 % (94.0-97.0); VENT MODE VENT - A/C; VT, ABG 550 mL
--- NOTE | 2019-02-09 08:00 | NUR ---
Respiratory services, Dr. Dominguez in the unit to see and examine patient, full report given see orders hx. and orders to continue with care plan received.
[2019-02-09] MEDS: FOLIC ACID 1 MG TABLET GT SCH (08:40)
[2019-02-09] MEDS: DOCUSATE SODIUM 100 MG/10 ML LIQUID UDC GT SCH (08:40)
[2019-02-09] MEDS: FUROSEMIDE 20 MG/2 ML VIAL IV SCH ×2 (08:40→21:01)
[2019-02-09] MEDS: CHLORHEXIDINE GLUCONATE 15 ML MOUTHWASH MM SCH ×2 (08:40→21:01)
[2019-02-09] MEDS: ASPIRIN 325 MG TABLET GT SCH (08:40)
[2019-02-09] MEDS: PANTOPRAZOLE SODIUM 40 MG VIAL IV SCH (08:40)
[2019-02-09] MEDS: ASCORBIC ACID 500 MG TABLET GT SCH (08:40)
[2019-02-09] MEDS: CLOTRIMAZOLE 1% CREAM 30 GM TUBE TOP SCH ×2 (08:41→16:06)
[2019-02-09] MEDS: MUPIROCIN 2% OINT 22 GM TUBE NS SCH (08:42)
[2019-02-09] MEDS: CYANOCOBALAMIN 1,000 MCG TABLET GT SCH (08:43)
[2019-02-09] MEDS: MEROPENEM 500 MG in IV NORMAL SALINE 50 ML IV SCH ×2 (08:43→20:58)
[2019-02-09] MEDS: MIDODRINE HCL 2.5 MG TABLET PO SCH ×3 (08:44→16:06)
[2019-02-09] MEDS: CHOLECALCIFEROL 1,000 UNIT TABLET GT SCH ×2 (08:44→16:05)
[2019-02-09] MEDS: Z GUARD REMEDY PASTE 57 GM TUBE TOP SCH ×2 (08:46→21:03)
[2019-02-09] MEDS: MULTIVITAMINS,THERAPEUTIC TABLET GT SCH (08:46)
[2019-02-09] MEDS: FERROUS SULFATE 300 MG/5 ML LIQUID UDC GT SCH ×2 (12:03→19:17)
[2019-02-09] MEDS: OSMOLITE 1.2 CAL 1,000 ML LIQUID NG PRN (12:15)
--- NOTE | 2019-02-09 13:30 | NUR ---
Attending Dr. Raygoza in the unit to see and examine patient.
--- NOTE | 2019-02-09 15:09 | NUR ---
Clinical pharmacy note-Amikacin dosing per pharmacy Subjective: To continue Amikacin dosing on this patient for HCAP Objective: ht 172.7 cm wt 61.8 kg BUN 38 Scr 1.4 WBC 9.2 Temp 97.8 Amikacin random level: 14.7 (post amikacin 350 mg IV x1 on 02/03 at 2330) Amikacin random level on 02/05 at 0817: 13.5(post amikacin 350mg iv x1 on 02/04 at 1800) Amikacin random level on 02/07 at 06: 11.7 (post amikacin 350mg iv x1 on 02/05 at 1800) Amikacin random level 11hrs post 15mg/kg dose (for extended dosing) on 02/08 @0442: 23.4 Amikacin random level on 02/09 with am labs: 14 (post amikacin 900mg iv x1 on 02/07 at 1800) Assessment/Plan: Since srcr increased, will dose by random level for today. Will give amikacin 350 mg IV x1 today at 1800. Amikacin random level is on order for 1 with am labs. Will check level when available and re-dose when appropriate or change to traditional dosing if renal function remains stable. Will follow
[2019-02-09] MEDS: NOREPINEPHRINE BITARTRATE 16 MG in IV DEXTROSE 5% 500 ML IV PRN (16:09)
[2019-02-09] MEDS ORDERED: AMIKACIN 350 MG in IV DEXTROSE 5% 100 ML IV ONE (18:00)
[2019-02-09] MEDS: ATORVASTATIN 40 MG TABLET GT SCH (21:01)
[2019-02-10] VITALS (96 sets, daily range): BP systolic 81–111; BP diastolic 44–75
[2019-02-10] MEDS: IV NORMAL SALINE 250 ML IV PRN (02:45)
--- NOTE | 2019-02-10 04:12 | NUR ---
PT ON CONT ZAMORA VENT WITH 7.0 ET/TUBE IN PLACE AND SECURED, WITH SAME CURRENT VENT SETTINGS, PT DOES ASSIST AT TIMES, SUCTIONED LIGHT PALE YELL TINGE SECRETIONS, FAIR COUGH EFFORT, NO VENT CHANGES MADE, ALL VENT ALARMS GOOD, NO VENT CHANGES MADE, CHANGE HME, ORDER TO BE WEANED AT 0700 TRIAL ON CPAP , PSV 8, ABG 0800. Vilma VIGIL RCP Addendum: 02/10/19 at 0415 by AKHIL VIGIL RT Amended: Links added.
[2019-02-10 05:06] LABS: BASOPHILS % (AUTO) 0.1 % (0.0-2.0); EOSINOPHILS # (AUTO) 1.1 K/uL (0.0-0.7); EOSINOPHILS % (AUTO) 9.1 % (0.0-7.0); HEMOGLOBIN 9.5 g/dL (12.5-16.3); LYMPHOCYTES # (AUTO) 0.7 K/uL (20.0-40.0); MEAN CORPUSCULAR HEMOGLOBIN 30.3 uug (23.8-33.4); MEAN CORPUSCULAR HGB CONC 32 g/dL (32.5-36.3); MEAN CORPUSCULAR VOLUME 95.6 fL (73.0-96.2); MONOCYTES # (AUTO) 0.7 K/uL (2.0-10.0); MONOCYTES % (AUTO) 5.8 % (0.0-11.0); NEUTROPHILS # (AUTO) 9.1 K/uL (1.8-8.9); PLATELET COUNT (AUTO) 198 K/uL (152-348); RED BLOOD CELL COUNT(AUTO) 3.14 MIL/uL (4.06-5.63); WHITE BLOOD COUNT (AUTO) 11.5 K/uL (3.6-10.2)
[2019-02-10 05:14] LABS: CARBON DIOXIDE 22 mmol/L (21-32); CHLORIDE 101 mmol/L (98-107); CREATININE 1.6 mg/dL (0.6-1.3); GLUCOSE 226 mg/dL (74-106); MAGNESIUM 2.4 mg/dL (1.8-2.4); PHOSPHOROUS 5.3 mg/dL (2.5-4.9); POTASSIUM 3.9 mmol/L (3.5-5.1); UREA NITROGEN, BLOOD 43 mg/dL (7-18)
[2019-02-10] MEDS: CLINDAMYCIN PHOSPHATE IV 600 MG in IV DEXTROSE 5% 100 ML IV SCH ×3 (05:19→21:15)
--- NOTE | 2019-02-10 07:00 | NUR ---
At this time patient placed on CPAP and PSV 8 and 2 within 2 minutes of trial patient, saturation drop to mid to low 80's pt. tachypneic and labored breathing noted. Patient immediately placed back on A/c 14,FIO2 of 30% peep of 5.
[2019-02-10] MEDS: PROPOFOL 100 ML IV PRN ×2 (07:27→14:23)
--- NOTE | 2019-02-10 07:40 | NUR ---
with head to toe assessment patient found with body temp of 93.5 warming measures implemented and with repositioning patient noted to turn cyanotic, with labor breathing, and saturation drop to 87-88%. At this time patient FIO@ increased to 50%. RT Ke notified.
[2019-02-10] MEDS: FOLIC ACID 1 MG TABLET GT SCH (08:09)
[2019-02-10] MEDS: FUROSEMIDE 20 MG/2 ML VIAL IV SCH (08:09)
[2019-02-10] MEDS: DOCUSATE SODIUM 100 MG/10 ML LIQUID UDC GT SCH (08:09)
[2019-02-10] MEDS: ASCORBIC ACID 500 MG TABLET GT SCH (08:09)
[2019-02-10] MEDS: MULTIVITAMINS,THERAPEUTIC TABLET GT SCH (08:09)
[2019-02-10] MEDS: PANTOPRAZOLE SODIUM 40 MG VIAL IV SCH (08:09)
[2019-02-10] MEDS: ASPIRIN 325 MG TABLET GT SCH (08:09)
[2019-02-10] MEDS: MEROPENEM 500 MG in IV NORMAL SALINE 50 ML IV SCH ×2 (08:10→21:14)
[2019-02-10] MEDS: CYANOCOBALAMIN 1,000 MCG TABLET GT SCH (08:10)
[2019-02-10] MEDS: CHOLECALCIFEROL 1,000 UNIT TABLET GT SCH ×2 (08:10→17:16)
[2019-02-10] MEDS: CHLORHEXIDINE GLUCONATE 15 ML MOUTHWASH MM SCH ×2 (08:11→21:15)
[2019-02-10] MEDS: MIDODRINE HCL 2.5 MG TABLET PO SCH ×3 (08:11→17:16)
[2019-02-10] MEDS: CLOTRIMAZOLE 1% CREAM 30 GM TUBE TOP SCH ×2 (08:12→17:17)
[2019-02-10] MEDS: Z GUARD REMEDY PASTE 57 GM TUBE TOP SCH ×2 (08:12→21:16)
--- NOTE | 2019-02-10 09:30 | NUR ---
Pulmonary services, Dr. Dominguez in the unit to see and examine patient, full report given. See order hx.
[2019-02-10] MEDS: FERROUS SULFATE 300 MG/5 ML LIQUID UDC GT SCH ×2 (11:10→19:09)
[2019-02-10] MEDS: OSMOLITE 1.2 CAL 1,000 ML LIQUID NG PRN (11:11)
--- NOTE | 2019-02-10 12:32 | NUR ---
Attending Tricia in the unit and at this time pt's son and DPRACHEL in the unit visiting his father. Attending had an extensive talk with pt's son Mr. Gabo Orantes regarding care plan. this discussion was joined by neurologist Dr. Newman.
--- NOTE | 2019-02-10 13:45 | NUR ---
Clinical pharmacy note-Amikacin dosing per pharmacy Subjective: To continue Amikacin dosing on this patient for HCAP Objective: ht 172.7 cm wt 61.8 kg BUN 43 Scr 1.6 WBC 11.5 Temp 98.2 Amikacin random level: 14.7 (post amikacin 350 mg IV x1 on 02/03 at 2330) Amikacin random level on 02/05 at 0817: 13.5(post amikacin 350mg iv x1 on 02/04 at 1800) Amikacin random level on 02/07 at 06: 11.7 (post amikacin 350mg iv x1 on 02/05 at 1800) Amikacin random level 11hrs post 15mg/kg dose (for extended dosing) on 02/08 @0442: 23.4 Amikacin random level on 02/09 with am labs: 14 (post amikacin 900mg iv x1 on 02/07 at 1800) Amikacin random level on 02/10 with am labs: 20.4 (post amikacin 350mg iv x 1 on 02/09 at 1800) Assessment/Plan: Since renal function continues to be unstable, will dose by random level for today. Last amikacin 350mg iv x 1 was given 02/09 @ 1800. Per today's random, no dose for today. Next random ordered with am labs tomorrow. Will check and dose as needed. Will follow
[2019-02-10] MEDS: NOREPINEPHRINE BITARTRATE 16 MG in IV DEXTROSE 5% 500 ML IV PRN (14:22)
[2019-02-10] MEDS: ATORVASTATIN 40 MG TABLET GT SCH (21:14)
[2019-02-11] VITALS (94 sets, daily range): BP systolic 80–111; BP diastolic 43–62
[2019-02-11] MEDS: PROPOFOL 100 ML IV PRN ×3 (00:56→16:15)
[2019-02-11 01:10] LABS: ABG BASE EXCESS -5.6 mmol/L; ABG HCO3 20.3 mmol/L; ABG PCO2 41.4 mmHg (35.0-45.0); ABG PH 7.309 (7.350-7.450); ABG PO2 79.2 mmHg (75.0-100.0); ABG SITE RIGHT RADIAL; ABG TOTAL HEMOGLOBIN 10.3 G/dL (13.5-18.0); COHb 1.5 % (0.5-1.5); MetHb 0.2 % (0.0-1.5); O2Hb 93.2 % (94.0-97.0); VENT MODE VENT - A/C; VT, ABG 550 mL
[2019-02-11 05:04] LABS: BASOPHILS % (AUTO) 0.3 % (0.0-2.0); EOSINOPHILS # (AUTO) 0.9 K/uL (0.0-0.7); EOSINOPHILS % (AUTO) 7.8 % (0.0-7.0); HEMATOCRIT 28.5 % (36.7-47.1); HEMOGLOBIN 9.2 g/dL (12.5-16.3); LYMPHOCYTES # (AUTO) 0.9 K/uL (20.0-40.0); LYMPHOCYTES % (AUTO) 7.3 % (20.5-51.5); MEAN CORPUSCULAR HEMOGLOBIN 30.6 uug (23.8-33.4); MEAN CORPUSCULAR HGB CONC 32 g/dL (32.5-36.3); MEAN CORPUSCULAR VOLUME 94.8 fL (73.0-96.2); MONOCYTES # (AUTO) 0.8 K/uL (2.0-10.0); MONOCYTES % (AUTO) 6.6 % (0.0-11.0); NEUTROPHILS # (AUTO) 9.2 K/uL (1.8-8.9); PLATELET COUNT (AUTO) 230 K/uL (152-348); WHITE BLOOD COUNT (AUTO) 11.8 K/uL (3.6-10.2)
[2019-02-11 05:10] LABS: ALANINE AMINOTRANSFERASE 22 U/L (16-63); ALKALINE PHOSPHATASE 112 U/L (50-136); ASPARTATE AMINOTRANSFERASE 33 U/L (15-37); BILIRUBIN,TOTAL 0.5 mg/dL (0.2-1.0); CARBON DIOXIDE 21 mmol/L (21-32); CHLORIDE 101 mmol/L (98-107); CREATININE 1.8 mg/dL (0.6-1.3); GLUCOSE 125 mg/dL (74-106); MAGNESIUM 2.5 mg/dL (1.8-2.4); PHOSPHOROUS 5.6 mg/dL (2.5-4.9); POTASSIUM 4.3 mmol/L (3.5-5.1); TOTAL PROTEIN, SERUM 6.1 g/dL (6.4-8.2); UREA NITROGEN, BLOOD 48 mg/dL (7-18)
[2019-02-11] MEDS: CLINDAMYCIN PHOSPHATE IV 600 MG in IV DEXTROSE 5% 100 ML IV SCH ×3 (05:25→22:19)
[2019-02-11] MEDS: IV NORMAL SALINE 250 ML IV PRN (05:35)
[2019-02-11] MEDS: ASPIRIN 325 MG TABLET GT SCH (08:01)
[2019-02-11] MEDS: DOCUSATE SODIUM 100 MG/10 ML LIQUID UDC GT SCH (08:01)
[2019-02-11] MEDS: PANTOPRAZOLE SODIUM 40 MG VIAL IV SCH (08:01)
[2019-02-11] MEDS: CHLORHEXIDINE GLUCONATE 15 ML MOUTHWASH MM SCH ×2 (08:01→20:36)
[2019-02-11] MEDS: FOLIC ACID 1 MG TABLET GT SCH (08:01)
[2019-02-11] MEDS: MULTIVITAMINS,THERAPEUTIC TABLET GT SCH (08:01)
[2019-02-11] MEDS: ASCORBIC ACID 500 MG TABLET GT SCH (08:01)
[2019-02-11] MEDS: CHOLECALCIFEROL 1,000 UNIT TABLET GT SCH ×2 (08:02→16:51)
[2019-02-11] MEDS: CLOTRIMAZOLE 1% CREAM 30 GM TUBE TOP SCH ×2 (08:02→16:52)
[2019-02-11] MEDS: CYANOCOBALAMIN 1,000 MCG TABLET GT SCH (08:02)
[2019-02-11] MEDS: MEROPENEM 500 MG in IV NORMAL SALINE 50 ML IV SCH ×2 (08:02→20:37)
[2019-02-11] MEDS: MIDODRINE HCL 2.5 MG TABLET PO SCH ×3 (08:05→16:51)
[2019-02-11] MEDS: Z GUARD REMEDY PASTE 57 GM TUBE TOP SCH ×2 (08:06→20:36)
[2019-02-11] MEDS: FERROUS SULFATE 300 MG/5 ML LIQUID UDC GT SCH ×2 (10:40→18:03)
[2019-02-11] MEDS: OSMOLITE 1.2 CAL 1,000 ML LIQUID NG PRN (10:40)
[2019-02-11] MEDS: ALBUMIN HUMAN 25% 25 GM in PREMIXED 1 EACH IV SCH ×2 (11:14→17:20)
--- NOTE | 2019-02-11 12:00 | NUR ---
Nephrology services, Dr. Radha Farr in the unit to see and examine patient. See order hx.
[2019-02-11] MEDS: IV D5/ 0.9% NACL 1,000 ML IV PRN (13:11)
[2019-02-11] MEDS: NOREPINEPHRINE BITARTRATE 16 MG in IV DEXTROSE 5% 500 ML IV PRN (13:14)
--- NOTE | 2019-02-11 13:45 | NUR ---
Pt's son Mr. Ayon in the unit he was updated on care plan as requested and instructed to see case management for update on transfer clearance.
--- NOTE | 2019-02-11 16:02 | NUR ---
Clinical pharmacy note-Amikacin dosing per pharmacy Subjective: To continue Amikacin dosing on this patient for HCAP Objective: ht 172.7 cm wt 61.8 kg BUN 48 Scr 1.8 (1.1->1.4->1.6 yesterday) WBC 11.8 Temp 98.6 Amikacin random level: 14.7 (post amikacin 350 mg IV x1 on 02/03 at 2330) Amikacin random level on 02/05 at 0817: 13.5(post amikacin 350mg iv x1 on 02/04 at 1800) Amikacin random level on 02/07 at 06: 11.7 (post amikacin 350mg iv x1 on 02/05 at 1800) Amikacin random level 11hrs post 15mg/kg dose (for extended dosing) on 02/08 @0442: 23.4 Amikacin random level on 02/09 with am labs: 14 (post amikacin 900mg iv x1 on 02/07 at 1800) Amikacin random level on 02/10 with am labs: 20.4 (post amikacin 350mg iv x 1 on 02/09 at 1800) Amikacin random level on 02/11 with am labs: 14.3 Assessment/Plan: As renal function continues to worsen, will continue to dose per level. Per today's random and worsening Scr, no dose for today. Last amikacin 350mg iv x 1 was given 02/09 @ 1800. Next random ordered with am labs tomorrow. Will check and dose as needed. Will follow
--- NOTE | 2019-02-11 19:30 | NUR ---
Report received. Patient orally intubated and to mechanical ventilator with settings: RX=374 ml, Ac=14, FIO2=30% and PEEP=5 cm. On both Levophed and Diprivan drips via MATTHEW PICC line; see IV spread sheet for rates/dosages. Assessment completed. Addendum: 02/11/19 at 2206 by MINH SHORE RN Amended: Links added. Addendum: 02/11/19 at 2210 by MINH SHORE RN Amended: Links added. Addendum: 02/11/19 at 2211 by MINH SHORE RN Amended: Links added.
--- NOTE | 2019-02-11 20:00 | NUR ---
Incontinent of small green stool. Cleaned; skin care provided. Patient desaturates to 88% during care and repositioning. FIO2 increased to 40% by RT to keep sat above 94%. NGT checked for residual=40ml; feedings Osmolite 1.2 started at 10 ml/H. Will monitor. Addendum: 02/11/19 at 2210 by MINH SHORE RN Amended: Links added. Addendum: 02/11/19 at 2211 by MINH SHORE RN Amended: Links added.
--- NOTE | 2019-02-11 20:05 | NUR ---
PT RECEIVED ON CONTINUOUS VENT AC 14 VT 550 PEEP 5 FIO2 40%. ETT SECURED AT 22 CM LIP LINE VIA ANCHOR FAST. SUCTION PRN. VENT CHECKED, ALARMS WORKING WELL AND AUDIBLE. FIO2 INCREASED TO 40% TO KEEP SAT > 94%. RN AWARE . NO DISTRESS NOTED AT THIS TIME. WILL CONTINUE TO MONITOR.
--- NOTE | 2019-02-11 20:20 | NUR ---
Sedation vacation: After 20 minutes patient's RR up to 28, mildly labored breathing but still doesn't open eyes. Diprivan drip resumed at 30 mcg/kg/min.
[2019-02-11] MEDS: ATORVASTATIN 40 MG TABLET GT SCH (20:36)
--- NOTE | 2019-02-11 21:00 | NUR ---
Seen by Adrienne MUIR; updated of patient's condition. No new orders. Addendum: 02/11/19 at 2211 by MINH SHORE RN Amended: Links added.
[2019-02-12] VITALS (92 sets, daily range): BP systolic 82–110; BP diastolic 44–64
--- NOTE | 2019-02-12 | NUR ---
Incontinent of small green stools again. Cleaned; skin care provided. With periods of desaturation and mild cyanosis of face and ears during turning and repositioning. FIO2 increased to 100% x 2 minutes during care.
[2019-02-12] MEDS ORDERED: ALBUMIN HUMAN 25% 200 ML ONE (00:16)
[2019-02-12] MEDS: ALBUMIN HUMAN 25% 25 GM in PREMIXED 1 EACH IV SCH ×2 (00:18→05:27)
[2019-02-12] MEDS: PROPOFOL 100 ML IV PRN ×2 (02:41→11:01)
[2019-02-12] MEDS: IV D5/ 0.9% NACL 1,000 ML IV PRN (02:47)
[2019-02-12 05:12] LABS: BASOPHILS % (AUTO) 0.3 % (0.0-2.0); EOSINOPHILS # (AUTO) 0.8 K/uL (0.0-0.7); HEMATOCRIT 26.1 % (36.7-47.1); HEMOGLOBIN 8.4 g/dL (12.5-16.3); LYMPHOCYTES % (AUTO) 8.5 % (20.5-51.5); MEAN CORPUSCULAR HEMOGLOBIN 30.7 uug (23.8-33.4); MEAN CORPUSCULAR HGB CONC 32 g/dL (32.5-36.3); MEAN CORPUSCULAR VOLUME 95.2 fL (73.0-96.2); MONOCYTES # (AUTO) 0.8 K/uL (2.0-10.0); MONOCYTES % (AUTO) 6.7 % (0.0-11.0); NEUTROPHILS # (AUTO) 9.2 K/uL (1.8-8.9); NEUTROPHILS % (AUTO) 77.5 % (38.5-71.5); PLATELET COUNT (AUTO) 230 K/uL (152-348); RED BLOOD CELL COUNT(AUTO) 2.74 MIL/uL (4.06-5.63); WHITE BLOOD COUNT (AUTO) 11.9 K/uL (3.6-10.2)
[2019-02-12 05:22] LABS: CARBON DIOXIDE 19 mmol/L (21-32); CHLORIDE 97 mmol/L (98-107); CREATININE 2.1 mg/dL (0.6-1.3); GLUCOSE 138 mg/dL (74-106); MAGNESIUM 2.7 mg/dL (1.8-2.4); POTASSIUM 4.3 mmol/L (3.5-5.1); UREA NITROGEN, BLOOD 56 mg/dL (7-18)
[2019-02-12] MEDS: CLINDAMYCIN PHOSPHATE IV 600 MG in IV DEXTROSE 5% 100 ML IV SCH ×3 (06:07→22:16)
--- NOTE | 2019-02-12 06:37 | NUR ---
Remains on Diprivan and Levophed drips. Still with desaturation and mild cyanosis during care and repositioning. NGT feedings at 20 ml/H since 0400; residuals 10-30 ml. Urine output only 200 ml x 12 H; will endorse to am shift.
--- NOTE | 2019-02-12 07:30 | NUR ---
Recieved pt in bed, sedated on Propfol drip at 25mcg/kg/min, responsive to deep painful stimuli and suctioning. HR- SR with BBB and occassional PVC's. Pt on Levophed drip at 7mcg/min, SBP on the low 90's but MAP is above 60. Temperature- hypothermic 94.7F. Bearhugger blanket on medeum setting applied.
[2019-02-12] MEDS: ASPIRIN 325 MG TABLET GT SCH (08:13)
[2019-02-12] MEDS: FOLIC ACID 1 MG TABLET GT SCH (08:13)
[2019-02-12] MEDS: MULTIVITAMINS,THERAPEUTIC TABLET GT SCH (08:13)
[2019-02-12] MEDS: ASCORBIC ACID 500 MG TABLET GT SCH (08:13)
[2019-02-12] MEDS: DOCUSATE SODIUM 100 MG/10 ML LIQUID UDC GT SCH (08:14)
[2019-02-12] MEDS: CHLORHEXIDINE GLUCONATE 15 ML MOUTHWASH MM SCH ×2 (08:14→20:58)
[2019-02-12] MEDS: MEROPENEM 500 MG in IV NORMAL SALINE 50 ML IV SCH ×2 (08:14→20:58)
[2019-02-12] MEDS: PANTOPRAZOLE SODIUM 40 MG VIAL IV SCH (08:14)
[2019-02-12] MEDS: CYANOCOBALAMIN 1,000 MCG TABLET GT SCH (08:15)
[2019-02-12] MEDS: MIDODRINE HCL 2.5 MG TABLET PO SCH ×3 (08:16→16:44)
[2019-02-12] MEDS: CHOLECALCIFEROL 1,000 UNIT TABLET GT SCH ×2 (08:16→16:45)
[2019-02-12] MEDS: Z GUARD REMEDY PASTE 57 GM TUBE TOP SCH ×2 (08:18→20:58)
[2019-02-12] MEDS: CLOTRIMAZOLE 1% CREAM 30 GM TUBE TOP SCH ×2 (08:19→16:46)
--- NOTE | 2019-02-12 09:50 | NUR ---
Seen and examined by Dr Dominguez with new orders.
[2019-02-12 10:15] LABS: ABG BASE EXCESS -6.1 mmol/L; ABG PCO2 30.7 mmHg (35.0-45.0); ABG PH 7.387 (7.350-7.450); ABG PO2 86.6 mmHg (75.0-100.0); ABG SITE RIGHT RADIAL; MetHb 0.1 % (0.0-1.5); O2Hb 95.3 % (94.0-97.0); VENT MODE VENT - A/C; VT, ABG 550 mL
[2019-02-12] MEDS: FERROUS SULFATE 300 MG/5 ML LIQUID UDC GT SCH ×2 (11:00→18:33)
[2019-02-12] MEDS ORDERED: EPOETIN ALFA 10,000 UNITS/ML VIAL SQ ONE (14:00)
--- NOTE | 2019-02-12 16:00 | NUR ---
Tube feeding remains at 20ml/hr. Had some emesisi small amount.
--- NOTE | 2019-02-12 16:00 | NUR ---
Seen ad examined by Dr Loaiza with new orders.
--- NOTE | 2019-02-12 16:11 | NUR ---
Clinical pharmacy note-Amikacin dosing per pharmacy Subjective: To continue Amikacin dosing on this patient for HCAP Objective: ht 172.7 cm wt 61.8 kg BUN 48 Scr 1.8 (1.1->1.4->1.6 yesterday) WBC 11.8 Temp 98.6 Amikacin random level: 14.7 (post amikacin 350 mg IV x1 on 02/03 at 2330) Amikacin random level on 02/05 at 0817: 13.5(post amikacin 350mg iv x1 on 02/04 at 1800) Amikacin random level on 02/07 at 06: 11.7 (post amikacin 350mg iv x1 on 02/05 at 1800) Amikacin random level 11hrs post 15mg/kg dose (for extended dosing) on 02/08 @0442: 23.4 Amikacin random level on 02/09 with am labs: 14 (post amikacin 900mg iv x1 on 02/07 at 1800) Amikacin random level on 02/10 with am labs: 20.4 (post amikacin 350mg iv x 1 on 02/09 at 1800) Amikacin random level on 02/11 with am labs: 14.3 Amikacin random level on 02/11 with am labs: 11.8 Assessment/Plan: As renal function continues to worsen, will continue to dose per level. Per today's random and worsening Scr, no dose for today. Expexct for amikacin level to be < 10 mcg/ml by tomorrow. Will give amikacin 350mg iv x 1 tomorrow at 0800. Will review srcr in am & order next random level for further dosing. Will follow
[2019-02-12] MEDS: FUROSEMIDE 40 MG/4 ML VIAL IV SCH ×2 (16:47→20:58)
--- NOTE | 2019-02-12 17:20 | NUR ---
PT REMAINS ON FULL VENT SUPPORT, NO WEANING, NO ABG'S TODAY. PT SXN'D NEEDED, ORAL CARE PERFORMED, ETT REPOSITIONED DURING SHIFT. VENT ALARMS AUDIBLE, CHECKED AND RESET. BVM AT BEDSIDE. WILL CONT TO MONITOR AND REPORT ANY CHANGES. CONT WITH CURRENT RT ORDERS.
--- NOTE | 2019-02-12 18:00 | NUR ---
[facility] EMERGENCY MEDICINE NURSE PRACTITIONER ordered CT of head when pt is stable to go.
--- NOTE | 2019-02-12 20:00 | NUR ---
Report received. 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 With ETT to vent, same settings. Saturations above 94%. On continuous Levophed drip for BP support and Diprivan drip for sedation. Assessment completed. Addendum: 02/13/19 at 0545 by MINH SHORE RN Amended: Links added. Addendum: 02/13/19 at 0547 by MINH SHORE RN Amended: Links added. Addendum: 02/13/19 at 0551 by MINH SHORE RN Amended: Links added. Addendum: 02/13/19 at 0535 by MINH SHORE RN Amended: Links added.
[2019-02-12] MEDS: NOREPINEPHRINE BITARTRATE 16 MG in IV DEXTROSE 5% 500 ML IV PRN (20:25)
[2019-02-12] MEDS: ATORVASTATIN 40 MG TABLET GT SCH (20:58)
--- NOTE | 2019-02-12 21:00 | NUR ---
NGT feedings at 20 ml/H. Residuals above 80 ml; feedings held for now. Will monitor. Seen by Adrienne MUIR; updated of patient's condition. Addendum: 02/13/19 at 0547 by MINH SHORE RN Amended: Links added. Addendum: 02/13/19 at 0551 by MINH SHORE RN Amended: Links added. Addendum: 02/13/19 at 0552 by MINH TAECHARATKIJ RN Amended: Links added.
[2019-02-13] VITALS (60 sets, daily range): BP systolic 78–107; BP diastolic 44–67
--- NOTE | 2019-02-13 | NUR ---
NGT feedings still on hold; with high residuals. Addendum: 02/13/19 at 4852 by MINH SHORE RN Amended: Links added.
[2019-02-13] MEDS: PROPOFOL 100 ML IV PRN ×2 (02:43→07:59)
--- NOTE | 2019-02-13 03:45 | NUR ---
Sedation vacation: After 45 minutes patient's RR 28-32/min. Coughing, but still doesn't open eyes to name. Diprivan drip resumed at 25 mcg/kg/min. Am care done. Cleaned for small liquid, soft green BM. Specimen for stool OB sent to lab. Addendum: 02/13/19 at 0551 by MINH SHORE RN Amended: Links added. Addendum: 02/13/19 at 0552 by MINH SHORE RN Amended: Links added.
[2019-02-13] MEDS: IV NORMAL SALINE 250 ML IV PRN (04:22)
[2019-02-13 05:15] LABS: BASOPHILS % (AUTO) 0.2 % (0.0-2.0); EOSINOPHILS # (AUTO) 0.9 K/uL (0.0-0.7); EOSINOPHILS % (AUTO) 7.1 % (0.0-7.0); HEMATOCRIT 27.3 % (36.7-47.1); HEMOGLOBIN 8.9 g/dL (12.5-16.3); LYMPHOCYTES # (AUTO) 0.9 K/uL (20.0-40.0); LYMPHOCYTES % (AUTO) 6.7 % (20.5-51.5); MEAN CORPUSCULAR HEMOGLOBIN 30.7 uug (23.8-33.4); MEAN CORPUSCULAR HGB CONC 33 g/dL (32.5-36.3); MEAN CORPUSCULAR VOLUME 94.2 fL (73.0-96.2); MONOCYTES # (AUTO) 0.9 K/uL (2.0-10.0); MONOCYTES % (AUTO) 6.8 % (0.0-11.0); NEUTROPHILS # (AUTO) 10.1 K/uL (1.8-8.9); NEUTROPHILS % (AUTO) 79.2 % (38.5-71.5); PLATELET COUNT (AUTO) 268 K/uL (152-348); RED BLOOD CELL COUNT(AUTO) 2.89 MIL/uL (4.06-5.63); WHITE BLOOD COUNT (AUTO) 12.8 K/uL (3.6-10.2)
[2019-02-13 05:26] LABS: CARBON DIOXIDE 18 mmol/L (21-32); CHLORIDE 97 mmol/L (98-107); CREATININE 2.4 mg/dL (0.6-1.3); GLUCOSE 164 mg/dL (74-106); MAGNESIUM 2.6 mg/dL (1.8-2.4); PHOSPHOROUS 7.7 mg/dL (2.5-4.9); POTASSIUM 4.1 mmol/L (3.5-5.1); UREA NITROGEN, BLOOD 61 mg/dL (7-18)
[2019-02-13] MEDS: CLINDAMYCIN PHOSPHATE IV 600 MG in IV DEXTROSE 5% 100 ML IV SCH (05:55)
--- NOTE | 2019-02-13 06:31 | NUR ---
Remains on Levophed and Diprivan drips via PICC line MATTHEW; see IV spread sheet for rates/dosages. NGT feedings held due to high residuals. Addendum: 02/13/19 at 0631 by MINH SHORE RN Amended: Links added.
[2019-02-13] MEDS ORDERED: AMIKACIN 350 MG in IV DEXTROSE 5% 100 ML IV ONE (08:00)
[2019-02-13] MEDS: ASPIRIN 325 MG TABLET GT SCH (08:01)
[2019-02-13] MEDS: ASCORBIC ACID 500 MG TABLET GT SCH (08:01)
[2019-02-13] MEDS: MULTIVITAMINS,THERAPEUTIC TABLET GT SCH (08:01)
[2019-02-13] MEDS: PANTOPRAZOLE SODIUM 40 MG VIAL IV SCH (08:01)
[2019-02-13] MEDS: FUROSEMIDE 40 MG/4 ML VIAL IV SCH (08:02)
[2019-02-13] MEDS: FOLIC ACID 1 MG TABLET GT SCH (08:02)
[2019-02-13] MEDS: DOCUSATE SODIUM 100 MG/10 ML LIQUID UDC GT SCH (08:02)
[2019-02-13] MEDS: MIDODRINE HCL 2.5 MG TABLET PO SCH (08:03)
[2019-02-13] MEDS: CHOLECALCIFEROL 1,000 UNIT TABLET GT SCH (08:03)
[2019-02-13] MEDS: CYANOCOBALAMIN 1,000 MCG TABLET GT SCH (08:03)
[2019-02-13] MEDS: CLOTRIMAZOLE 1% CREAM 30 GM TUBE TOP SCH ×2 (08:04→17:00)
[2019-02-13] MEDS: Z GUARD REMEDY PASTE 57 GM TUBE TOP SCH (08:04)
[2019-02-13 08:34] LABS: *OCCULT BLOOD STOOL NEGATIVE (NEGATIVE)
[2019-02-13 08:52] LABS: ABG BASE EXCESS -9.4 mmol/L; ABG HCO3 15.4 mmol/L; ABG PCO2 29.8 mmHg (35.0-45.0); ABG PH 7.332 (7.350-7.450); ABG PO2 132.4 mmHg (75.0-100.0); ABG SITE LEFT BRACHIAL; ABG TOTAL HEMOGLOBIN 9.3 G/dL (13.5-18.0); COHb 1.5 % (0.5-1.5); O2Hb 97.3 % (94.0-97.0); VENT MODE VENT - A/C; VT, ABG 550 mL
[2019-02-13] MEDS: CHLORHEXIDINE GLUCONATE 15 ML MOUTHWASH MM SCH (09:00)
--- NOTE | 2019-02-13 10:00 | NUR ---
Respiratory services, Dr. Dominguez in the unit to see and examine patient, full report given, see order hx.
--- NOTE | 2019-02-13 10:06 | NUR ---
Clinical pharmacy note-Amikacin dosing per pharmacy Subjective: To continue Amikacin dosing on this patient for HCAP Objective: ht 172.7 cm wt 61.8 kg BUN 61 Scr 2.4 (increasing) WBC 12.8 Temp 97.6 Amikacin random level: 14.7 (post amikacin 350 mg IV x1 on 02/03 at 2330) Amikacin random level on 02/05 at 0817: 13.5(post amikacin 350mg iv x1 on 02/04 at 1800) Amikacin random level on 02/07 at 06: 11.7 (post amikacin 350mg iv x1 on 02/05 at 1800) Amikacin random level 11hrs post 15mg/kg dose (for extended dosing) on 02/08 @0442: 23.4 Amikacin random level on 02/09 with am labs: 14 (post amikacin 900mg iv x1 on 02/07 at 1800) Amikacin random level on 02/10 with am labs: 20.4 (post amikacin 350mg iv x 1 on 02/09 at 1800) Amikacin random level on 02/11 with am labs: 14.3 Amikacin random level on 02/11 with am labs: 11.8 Assessment/Plan: As renal function continues to worsen, will continue to dose per level. Gave amikacin 350mg iv x 1 today at 0800 (no dose on 02/12 with amikacin random level of 11.8 with am labs). Will order next random level for tomorrow with am labs for further dosing. Will follow
--- NOTE | 2019-02-13 10:25 | NUR ---
Declining renal function with hyperphosphatemia noted. Pt discussed in CM and spoke to bedside RD directly. RN reported to me 50-150mL residuals last night and this a.m., as well as abdominal distention and an episode of emesis with repositioning. BM x1 early this a.m. TF currently being held. Recommend: -consider adding Reglan -If abdominal distention improves/resolves, initiate polymeric Vital 1.2 @ trophic rate (10mL/hr). RD to reassess advancement when tolerance proven. (This TF formula contains proteins that are pre-digested, so will be more gentle. With advancement, may have to compromise calories due to protein content of this product.) Addendum: 02/13/19 at [address] Amended: Links added.
--- NOTE | 2019-02-13 10:30 | NUR ---
Cardiology services, Dr. Loaiza in the unit to see and examine patient. see order hx.
[2019-02-13] MEDS ORDERED: EPOETIN ALFA 10,000 UNITS/ML VIAL SQ SCH (11:00)
[2019-02-13] MEDS: MEROPENEM 500 MG in IV NORMAL SALINE 50 ML IV SCH (11:39)
[2019-02-13] MEDS: FERROUS SULFATE 300 MG/5 ML LIQUID UDC GT SCH (11:41)
[2019-02-13] MEDS ORDERED: MIDODRINE HCL 5 MG TABLET PO SCH (13:00)
[2019-02-13] MEDS ORDERED: MIDODRINE HCL 2.5 MG TABLET PO SCH (13:00)
[2019-02-13] MEDS ORDERED: LORAZEPAM 2 MG/1 ML VIAL IV PRN (13:45)
[2019-02-13] MEDS ORDERED: GLYCOPYRROLATE 0.2 MG/ML VIAL IV PRN (13:45)
[2019-02-13] MEDS ORDERED: SCOPOLAMINE HYDROBROMIDE 1.5 MG PATCH TD SCH (13:56)
[2019-02-13] MEDS ORDERED: FUROSEMIDE 40 MG/4 ML VIAL IV SCH (14:00)
[2019-02-13] MEDS: MORPHINE SULFATE PF IV DRIP 250 MG in IV DEXTROSE 5% 240 ML IV PRN (14:44)
--- NOTE | 2019-02-13 17:17 | NUR ---
Pt. remain intubated and on respirator with no weaning being attempted today. Abg was done with result handed to Antonieta DOZIER.
[2019-02-13] MEDS: DEXTROSE 5% IV PRN (18:55)
[2019-02-13] MEDS: LORAZEPAM IV PRN (18:55)
--- NOTE | 2019-02-13 19:11 | NUR ---
Report given to Lewis Arredondo. rn informed that pt is on comfort measures with morphine and ativan running.
--- NOTE | 2019-02-13 19:30 | NUR ---
report received from Nurse Antonieta; pt on comfort measures; will assume care.
[2019-02-14] VITALS: BP 75/45
[2019-02-14 04:00] VITALS: BP 64/37
--- NOTE | 2019-02-14 04:09 | NUR ---
PT ON CONT ZAMORA VENT WITH 7.0 ET/TUBE IN PLACE AND SECURED, WITH SAME CURRENT VENT SETTINGS, PT DOES ASSIST AT TIMES, FAIR COUGH EFFORT,PALE YELL WITH SLIGHT PINKISH TINGE SECRETIONS, MOVE ANCHOR FAST Q2, NO VENT CHANGES MADE, CHANGE HME, ALL VENT ALARMS GOOD, NO VENT CHANGES MADE,AMBU BAG AT BEDSIDE.Vilma MARIEP Addendum: 02/14/19 at 0411 by AKHIL VIGIL RT Amended: Links added.
--- NOTE | 2019-02-14 07:18 | NUR ---
Pt tolerates current vent setting; on going ativan and morphine drip; pt is reportedly on comfort measures; suctioned secretions; incontinence care done; bath rendered; SBP now in the 60-70s systolic;
[2019-02-14 08:00] VITALS: BP 75/37
--- NOTE | 2019-02-14 10:00 | NUR ---
Doctor Dominguez in the unit to see patient. Full update regarding patient status. comfort measures was initiated yesterday per INORGANIC CHEMICAL TECHNICIAN and family decision. Extubation pending family decision today.
[2019-02-14] MEDS: LORAZEPAM IV PRN ×4 (10:51→22:31)
[2019-02-14] MEDS: DEXTROSE 5% IV PRN ×4 (10:51→22:31)
[2019-02-14 12:00] VITALS: BP 60/34
--- NOTE | 2019-02-14 12:33 | NUR ---
son is at bedside.
--- NOTE | 2019-02-14 13:30 | NUR ---
Edel PICCOLO MECHANIC in the unit talking to the son.
[2019-02-14] MEDS: MORPHINE SULFATE PF IV DRIP 250 MG in IV DEXTROSE 5% 240 ML IV PRN (14:32)
[2019-02-14 15:58] VITALS: BP 59/37
--- NOTE | 2019-02-14 17:13 | NUR ---
PT REMAINS STABLE ON VENTILATOR WITH NO S/S OF RESPIRATORY DISTRESS. TOLERATING VENT SETTINGS WELL. NO CHANGES MADE. WILL CONTINUE VENT MANAGEMENT.
--- NOTE | 2019-02-14 19:30 | NUR ---
rounds made patient in bed no spontaneous eye movement withdraws only to deep pain . comfort care -samson status c/o vent settings ac 14/550/peep 5/ fio2 30%.saturation 96 % rr 14, suction via mouth and via ett .no s/s/ of pain using flacc no grimaces upper nad lower extremities relax.on morphine drip and Ativan drip per protocol spoked to pharmacy and as per [place] to keep Ativan drip at 7 mg/hr and to titrate morphine instead . see spreadsheet . kept npo .aspiration precaution observed .continue to monitor v/s and levels of comfort no family noted at bedside .
[2019-02-14 20:00] VITALS: BP 52/28
--- NOTE | 2019-02-14 21:00 | NUR ---
turned and reposition patient .offloaded back area and elevated bilateral upper and lower extremities with pillows . suction via ett and via mouth . f/c to bsd small output only 10 ml yellowish urine .hob .contact isolation observed .
[2019-02-14] MEDS: IV NORMAL SALINE 250 ML IV PRN (23:17)
[2019-02-15] VITALS (11 sets, daily range): BP systolic 33–59; BP diastolic 16–36
--- NOTE | 2019-02-15 | NUR ---
no changes remains on Ativan and morphine drip to follow protocol .
[2019-02-15] MEDS: LORAZEPAM IV PRN ×7 (01:35→21:06)
[2019-02-15] MEDS: DEXTROSE 5% IV PRN ×7 (01:35→21:06)
--- NOTE | 2019-02-15 04:30 | NUR ---
am care done bath patient changed soiled linens and gown skin care done .f/c care done .oral care done . continue to titrate morphine c/o protocol for comfort care .see spreadsheet .no bm noted
--- NOTE | 2019-02-15 08:00 | NUR ---
Report received from JACOBY Blanchard.Pt remains unresponsive.No s/s of pain,discomfort .No SOB noted.SB on monitor with rate in 40s.Pt remains on Ativan gtt at 7 mg/hr,Morphine gtt at 15 mg/hr.AM care provided.Will continue to monitor.
--- NOTE | 2019-02-15 11:04 | NUR ---
Seen,examined by with no new orders.
[2019-02-15] MEDS: MORPHINE SULFATE PF IV DRIP 250 MG in IV DEXTROSE 5% 240 ML IV PRN (12:41)
--- NOTE | 2019-02-15 13:42 | NUR ---
Pt son at bedside,updated on patient condition.Amparo Daley CANDY DECORATOR at bedside.
--- NOTE | 2019-02-15 19:12 | NUR ---
RT PT ON CONT ZAMORA VENT WITH 7.0 ET/TUBE IN PLACE AND SECURED, WITH SAME CURRENT VENT SETTINGS, NO VENT CHANGES MADE, CHANGE HME, ALL VENT ALARMS ON AND AUDIBLE, NO VENT CHANGES MADE,AMBU BAG AT BEDSIDE. WILL CONT TO MONITOR
--- NOTE | 2019-02-15 19:30 | NUR ---
Report received. 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 With ETT to mechanical ventilator same settings. Sat 92%. On comfort measures with continuous Ativan and Morphine drips to MATTHEW PICC line. Assessment done. Addendum: 02/15/19 at 2148 by MINH SHORE RN Amended: Links added. Addendum: 02/15/19 at 2150 by MINH SHORE RN Amended: Links added.
--- NOTE | 2019-02-15 20:00 | NUR ---
Hypothermic. Temp=93 rectally. Dontrell ledezma turned on. Patient suctioned and turned. Vomited small amounts of green secretions. NGT attached to suctioned; obtained 500 ml green fluids. Oral care done. Addendum: 02/15/19 at 2150 by MINH SHORE RN Amended: Links added.
[2019-02-15] MEDS: IV NORMAL SALINE 250 ML IV PRN (20:49)
--- NOTE | 2019-02-15 21:25 | NUR ---
SBAR report given to Marilu DOZIER. Patient transferred to 306 per bed with RT, RNs x 2 and PARTY SUPPLY SPECIALIST and continuous vent support.
--- NOTE | 2019-02-15 21:40 | NUR ---
RT TRANSPORTED PT TO 306 ON CURRENT VENT SETTING. NO SOB NOTED. PT STABLE. VENT ALARM ON AND AUDIBLE. CONT PULSE OX AT BEDSIDE AND AMBU BAG AT BEDSIDE. VENT PLUGGED INTO RED OUTLET. WILL CONT TO MONITOR
--- NOTE | 2019-02-15 21:45 | NUR ---
Received pt in RM 306, on contact isolation. Pt on current vent settings: AC 14, TV 550, PEEP 5 and FIO2 30%. Pt on comfort measures with continuous Morphine and Ativan drips on MATTHEW PICC line. No acute distress noted. Dontrell hugger placed. Pt turned and repositioned. Continue comfort measures. Continue plan of care. See nursing flowsheet for data.
--- NOTE | 2019-02-15 22:00 | NUR ---
Call made to [facility] (JOSE MARIA) regarding pt condition. All questions answered. REFERRAL/ID number: [id number].
[2019-02-16] VITALS: BP 42/24
[2019-02-16] MEDS: LORAZEPAM IV PRN ×2 (00:16→03:27)
[2019-02-16] MEDS: DEXTROSE 5% IV PRN ×2 (00:16→03:27)
[2019-02-16] MEDS: MORPHINE SULFATE PF IV DRIP 250 MG in IV DEXTROSE 5% 240 ML IV PRN (02:33)
[2019-02-16 04:02] VITALS: BP 42/23
--- NOTE | 2019-02-16 06:13 | NUR ---
Patient apneic for 5 minutes. Pupils fixed and dilated. No audible heart tones or breath sounds. No palpable pulses for 1 minute. No corneal reflexes noted. Pt pronounced at 0613. Physician notified.
--- NOTE | 2019-02-16 06:35 | NUR ---
Postmortem care provided. All lines removed. NG tube removed. F/C removed. Kept pt clean and dry. Will continue care and endorse to day shift nurse.
[2019-02-17] MEDS ORDERED: EPOETIN ALFA 10,000 UNITS/ML VIAL SQ SCH (09:00)
== END 2019-02-16 06:13 | disposition expired | DRG 870 ==
LOC: ER 19:05 → CCU 21:30 → TELE-TD3 02-15 21:40
PROVIDERS: ADMIT Nurse Practitioner Acute Care; ATTEND Nurse Practitioner Acute Care
PROC: 5A1955Z Respiratory Ventilation, Greater than 96 Consecutive Hours (ICD-10-PCS; principal; 2019-02-01)
PROC: 0BH18EZ Insertion of Endotracheal Airway into Trachea, Via Natural or Artificial Opening Endoscopic (ICD-10-PCS; 2019-02-01)
PROC: 05HY33Z Insertion of Infusion Device into Upper Vein, Percutaneous Approach (ICD-10-PCS; 2019-02-02)
DX: A41.9 Sepsis, unspecified organism (principal); E43 Unspecified severe protein-calorie malnutrition; G93.41 Metabolic encephalopathy; I50.23 Acute on chronic systolic (congestive) heart failure; J96.01 Acute respiratory failure with hypoxia; N17.0 Acute kidney failure with tubular necrosis; R65.21 Severe sepsis with septic shock; J69.0 Pneumonitis due to inhalation of food and vomit; J15.0 Pneumonia due to Klebsiella pneumoniae; I21.A1 Myocardial infarction type 2; E87.0 Hyperosmolality and hypernatremia; I13.0 Hypertensive heart and chronic kidney disease with heart failure and stage 1 through stage 4 chronic kidney disease, or unspecified chronic kidney disease; I82.411 Acute embolism and thrombosis of right femoral vein; I82.431 Acute embolism and thrombosis of right popliteal vein; D68.59 Other primary thrombophilia; E87.1 Hypo-osmolality and hyponatremia; E87.2 Acidosis; J98.11 Atelectasis; I69.359 Hemiplegia and hemiparesis following cerebral infarction affecting unspecified side; Z66 Do not resuscitate; Z51.5 Encounter for palliative care; N18.9 Chronic kidney disease, unspecified; E86.0 Dehydration; Z22.322 Carrier or suspected carrier of Methicillin resistant Staphylococcus aureus; D64.9 Anemia, unspecified; I25.10 Atherosclerotic heart disease of native coronary artery without angina pectoris; E78.5 Hyperlipidemia, unspecified; Z74.09 Other reduced mobility; E11.22 Type 2 diabetes mellitus with diabetic chronic kidney disease; E11.51 Type 2 diabetes mellitus with diabetic peripheral angiopathy without gangrene; F02.80 Dementia in other diseases classified elsewhere, unspecified severity, without behavioral disturbance, psychotic disturbance, mood disturbance, and anxiety; G30.9 Alzheimer's disease, unspecified; F17.210 Nicotine dependence, cigarettes, uncomplicated; I25.5 Ischemic cardiomyopathy; H91.90 Unspecified hearing loss, unspecified ear; Z79.82 Long term (current) use of aspirin; Z79.899 Other long term (current) drug therapy; Z86.718 Personal history of other venous thrombosis and embolism; R57.1 Hypovolemic shock; D69.6 Thrombocytopenia, unspecified; Z53.1 Procedure and treatment not carried out because of patient's decision for reasons of belief and group pressure
CPT/HCPCS: 36415; 36600; 51702; 70030-TC; 71045; 82533; 83605; 83735; 84100; 84300; 85025; 85730; 87040; 87070; 87077; 87086; 87400; 93005; 93307; 94002; 94003; A4663; C1758; C9113; G0378; J0278; J0330; J0696; J0885; J1650; J1940; J2060; J2185; J2274; J2405; J2543; J3370; J3475; J3480; J3490; J3590; J7030; J7042; J7050; J7060; J7070; P9047